=== PATIENT | female | born 1970 | race Caucasian/White ===

== ENCOUNTER 2023-01-30 09:59 | Outpatient (AMB) | payer BC, SELFPAY ==
[2023-01-30 10:02] VITALS: BP 136/70; PULSE 72; O2SAT 97; BMI 30.3
--- NOTE | 2023-01-30 10:02 | MHC.PC.OV ---
Vital Signs 01/30/23 10:02 Height 5 ft 4 in Weight 176 lb 9 oz BMI 30.3 BP 136/70 Blood Pressure Location Lt brachial Position Sitting Pulse 72 Pulse Source Pulse Oximeter Pulse Oximetry (%) 97 Oxygen Delivery Method Room Air Intake Visit Reasons: New patient-High BP Intake Note: Patient is here as a new patient with concern of high blood pressure. She would like to talk about getting Cpap machine, she has her sleep study test results with her today. Allergies No Known Allergies Allergy (Verified 01/30/23 10:08) Tobacco use date assessed: 01/30/23 Dental Screening Dental Screen Date: 01/30/23 Did you have a dental visit in the last 12 months?: Yes Did you have a dental problem in the last 6 months where you did not have access to dental care?: No Was dental information given to patient?: Patient has dentist HPI New patient-High BP HPI Details New patient Prior PCP:?Dr. Oro Last office visit/CPE: 2020 Acute issue(s): PMHx: Hypertension, Sleep Apnea, Asthma, GERD, Uterine Cancer, Hypertriglyceridemia, ITP, Kidney Stone SurgHx: Total abd. hysterectomy, Tonsils. FHx: Brother: DM1, Liver disease, kidney dz. Mom: CAD, [place]. Dad: Aortic An, Stroke, Esoph CA. mGF: Colon CA. SocHx: Nonsmoker. EtOH Occasional 1 No drugs. PFS Medical History (Updated 01/30/23 @ 11:27 by Ayaan Pierre) History of ITP Acid reflux Uterine cancer Asthma High blood pressure Sleep apnea Surgical History (Updated 01/30/23 @ 10:18 by Maribel Bethea CMA) H/O: hysterectomy History of tonsillectomy Family History (Updated 01/30/23 @ 10:23 by Maribel Bethea CMA) Mother High blood pressure High cholesterol Uterine cancer Father High blood pressure High cholesterol Stroke (cerebrum) Aortic aneurysm Cancer of esophagus Brother Diabetes 1.5, managed as type 1 Liver failure Kidney failure Heart failure Ketoacidosis Social History Housing: House Patient Tobacco Use Status: Never used Tobacco e-Cigarette/Vaping Use: Never Used service: No Current occupational status: employed 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 1. Little interest or pleasure in doing things: not at all 2. Feeling down, depressed, or hopeless: not at all 3. Trouble falling or staying asleep, or sleeping too much: nearly every day 4. Feeling tired or having little energy: nearly every day 5. Poor appetite or overeating: not at all 6. Feeling bad about yourself - or that you are a failure or have let yourself or your family down: not at all 7. Trouble concentrating on things, such as reading the newspaper or watching television: not at all 8. Moving or speaking so slowly that other people could have noticed. Or the opposite - being so fidgety or restless that you have been moving around a lot more than usual: not at all 9. Thoughts that you would be better off or of hurting yourself in some way: not at all Total score: 6 Source: Developed by Drs. Munir Holley, Nicky Guthrie, Emanuel Hammond and colleagues, with an educational joel from [employer]. Thrive Questionnaire Date Thrive assessed: 01/30/23 I am a: Patient What is your living situation today?: I have a steady place to live Within the past 12 months, did the food you bought not last and you didn't have the money to get more?: Never true Within the past 12 months, did you worry whether your food would run out before you got money to buy more?: Never true Do you have trouble paying for medicines?: No Do you have trouble getting transportation to medical appointments?: No Do you have trouble paying your heating and electricity bill?: No Do you have trouble taking care of your child, family member or friend?: No Do you have trouble with day-to-day activities such as bathing, preparing meals, shopping, managing finances, etc.?: No Are you currently unemployed and looking for a job?: No Are you interested in more education?: No AUDIT C Alcohol Use Questionnaire (AUDIT-C) 1. How often do you have a drink containing alcohol?: 2-3 times a week 2. How many drinks containing alcohol do you have on a typical day when you are drinking?: 1 or 2 3. How often do you have six or more drinks on one occasion?: Never Total Score: 3 AUGUSTINE-7 AMB Questionnaire AUGUSTINE-7 Date AUGUSTINE - 7 assessed: 01/30/23 Feeling nervous, anxious, or on edge: 0 = Not at all Not being able to stop or control worryin = Not at all Worrying too much about different things: 0 = Not at all Trouble relaxin = Not at all Being so restless that it is hard to sit still: 1 = Several days Becoming easily annoyed or irritable: 0 = Not at all Feeling afraid as if something awful might happen: 0 = Not at all Total AUGUSTINE-7 score (0-4 normal; 5-9 mild; 10-14 moderate; 15-21 severe): 1 Source: Developed by Drs. Munir Holley, Nicky Guthrie, Emanuel Hammond and colleagues, with an educational joel from [employer]. ACT Questionnaire In the past 4 weeks, how much of the time did your asthma keep you from getting as much done at work, school or at home?: None of the time During the past 4 weeks, how often have you had shortness of breath?: 1-2 times a week During the past 4 weeks, how often did your asthma symptoms wake you up at night or earlier than usual in the morning?: Not at all During the past 4 weeks, how often have you had to use your rescue inhaler or nebulizer medication?: Once a week or less How would you rate your asthma control during the past 4 weeks?: Well controlled Score: 22 Review of Systems Const Denies chills, Denies fatigue, Denies fever(s), Denies headache(s) and Denies weakness ENT Denies dizziness and Denies headache(s) Card Denies chest pain, Denies lightheadedness, Denies dyspnea and Denies other (Palpitations) Resp Denies cough, Denies dyspnea, Denies wheezing and Denies other ( shortness of breath) Musc Denies numbness and Denies tingling Neuro Denies dizziness, Denies headache(s), Denies numbness, Denies tingling, Denies paresthesias and Denies weakness Psych Denies anxiety and Denies depression Endo Denies fatigue Aller/Immun Denies wheezing Physical exam (Primary Care) Vital Signs: Last Vital Signs Pulse 72 01/30/23 10:02 BP 136/70 01/30/23 10:02 Pulse Ox 97 01/30/23 10:02 Oxygen Delivery Method Room Air 01/30/23 10:02 BMI result Body Mass Index 30.3 Tobacco/Smoking Status: Tobacco use Status Tobacco use date assessed 01/30/23 01/30/23 10:24 Patient Tobacco Use Status Never used Tobacco 01/30/23 10:24 e-Cigarette/Vaping Use Never Used 01/30/23 10:24 PHQ-9: PHQ-9 Score PHQ-9: Total score 6 01/30/23 11:14 Thrive Assessment: Date of Thrive Assessment Date Thrive assessed 01/30/23 01/30/23 10:40 Const General: no acute distress and well developed Nutritional Appearance: well nourished Orientation/consciousness: patient oriented x3 HENMT Head: Yes normocephalic and Yes atraumatic Eyes General: appearance normal, both eyes and all related structures Pupils: Equal, round and reactive pupils present EOM: EOMs intact bilaterally Resp Effort & Inspection: normal respiratory effort Auscultation: clear to auscultation bilaterally Cardio Rate: regular rate Rhythm: regular rhythm Heart sounds: S1 normal heart sound present, S2 normal heart sound present, no gallops, Murmur heart sound present (4/6 systolic murmur over the aortic region) and no rubs Neuro General: patient oriented x3 and gait normal Cranial nerves: Yes Equal, round and reactive pupils present Psych Affect: normal affect Assessment and Plan Assessment & Plan (1) Hypertension: Code(s): I10 - Essential (primary) hypertension Plan: Blood?pressure?is?controlled.??Goal?is?less?than?140/90 May?improve?with?treatment?of?sleep?apnea For?now,?continue?current?medication?regimen Will?follow-up (2) Sleep apnea: Code(s): G47.30 - Sleep apnea, unspecified Plan: Sleep?study?showed?59?hypopnea?events?and?oxygen?saturation?as?low?as?81%. Referred?to?Sleep?Medicine (3) Hypertriglyceridemia: Code(s): E78.1 - Pure hyperglyceridemia Plan: Encouraged?diet?lower?in?saturated?fats?and?cholesterol?but?also?sugars?and?starches Work?on?a?diet?of?lean?meats?and?leafy?green?vegetables Will?repeat?triglycerides.??If?higher,?will?discuss?using?a?fibrate?medication (4) History of ITP: Code(s): Z86.2 - Personal history of diseases of the blood and blood-forming organs and certain disorders involving the immune mechanism Plan: Check?CBC (5) Heart murmur: Code(s): R01.1 - Cardiac murmur, unspecified Plan: 6?systolic?murmur?at?aortic?region Patient?is?unaware - this?has?never?been?characterized Check?echocardiogram (6) Laboratory exam ordered as part of routine general medical examination: Code(s): Z00.00 - Encounter for general adult medical examination without abnormal findings Plan: Check?lab Orders: Orders Lipid Panel Today Z00.00 - Encounter for general adult medical examination without abnormal findings Microalbumin, Random (w Creat) Today I10 - Essential (primary) hypertension UA and rflx microscopic Today Z00.00 - Encounter for general adult medical examination without abnormal findings Complete Blood Count Auto Diff Today Z00.00 - Encounter for general adult medical examination without abnormal findings Comprehensive [place]. Panel Fast Today Z00.00 - Encounter for general adult medical examination without abnormal findings TSH reflex Free T4 Today Z00.00 - Encounter for general adult medical examination without abnormal findings CA echo transthoracic complete Today R01.1 - Cardiac murmur, unspecified Referrals Sleep Medicine Referral G47.30 - Sleep apnea, unspecified Medications: New hydrochlorothiazide 25 mg PO DAILY 90 tabs 3RF 90 days amlodipine 10 mg PO DAILY 90 tabs 3RF 90 days fluticasone propionate 110 mcg/actuation (Flovent HFA) 2 puffs inhalation BID 12 grams 3RF 30 days albuterol sulfate 90 mcg/actuation (ProAir HFA) 2 puffs inhalation Q4-6H PRN 8.5 grams 0RF shortness of breath or wheezing 30 days Coding Level of Care Code New Pt Level 3 (03876) Diagnoses Hypertension I10 Sleep apnea G47.30 Hypertriglyceridemia E78.1 History of ITP Z86.2 Heart murmur R01.1 Laboratory exam ordered as part of routine general medical examination Z00.00
== END 2023-01-30 11:37 | disposition home or self-care (01) ==
PROVIDERS: PCP Family Medicine; Visit Provider Family Medicine
DX: I10 Essential (primary) hypertension (principal); G47.30 Sleep apnea, unspecified; E78.1 Pure hyperglyceridemia; Z86.2 Personal history of diseases of the blood and blood-forming organs and certain disorders involving the immune mechanism; R01.1 Cardiac murmur, unspecified; Z00.00 Encounter for general adult medical examination without abnormal findings
CPT/HCPCS: 99203

== ENCOUNTER → 2023-02-26 14:49 | Outpatient (REF) | payer BC, SELFPAY ==
--- NOTE | 2023-02-26 14:53 | CA_ITS ---
Transthoracic Echocardiogram Patient (Last, First, Middle): Noni Jama A Gender: Female Date of : 1970 Age: 53 Procedure Date: 02/26/2023 Procedure Type: Transthoracic Echocardiogram Location: OP Height: 162.56 cm Weight: 86.18 kg BSA: 1.91 m2 Heart Rate: bpm BP: 138 / 80 mmHg Outdoor Adventure Instructor: DELVIN Referring MD: Sampson Guerra MD Stock Parts Fabricator: Marcial Emmanuel MD Symptoms: R01.1 - Cardiac murmur, unspecified Study Quality: Adequate with contrast ECG Rhythm: Sinus Conclusions: - 1. Hyperdynamic LV ejection fraction with LVEF of greater than 70% with mild asymmetric septal hypertrophy without significant gradient across the LVOT with impaired relaxation filling pattern 2. Mild aortic regurgitation 3. Mildly dilated ascending aorta 3.7 cm 4. Normal RV systolic pressure 5. No pericardial effusion Findings Procedure Information Contrast agent, definity, is being given per protocol without apparent complications. Left Ventricle Normal left ventricular cavity size. There is normal left ventricular wall thickness. The left ventricular systolic function is hyperdynamic. The visually estimated ejection fraction is >70%. Spectral Doppler is indicative of an impaired relaxation filling pattern. E/E prime ratio is between 8 and 15 consistent with indeterminate filling pressures. There is mild septal asymmetric hypertrophy. Right Ventricle Normal right ventricular cavity size and systolic function. Atria The left atrium is likely dilated. Interatrial shunt cannot be excluded. The right atrium is normal in size. Aortic Valve The aortic valve structure and function is likely normal. There is no aortic valve stenosis. There is mild aortic valve regurgitation. Mitral Valve There is mild anterior and posterior mitral leaflet thickening. There is trace mitral valve regurgitation. There is no mitral valve stenosis. Pulmonic Valve The pulmonic valve is likely normal. There is trace pulmonic valve regurgitation. Tricuspid Valve Likely normal tricuspid valve structure and function. There is trace tricuspid valve regurgitation. The right ventricular systolic pressure is normal. The right ventricular systolic pressure is 25 mmHg. Normal right atrial pressure. Great Vessels The pulmonary artery was not well visualized. There is mild dilatation of the ascending aorta measuring 3.70 cm. Venous The inferior vena cava is normal in size and collapses greater than 50% with inspiration. Pericardium/Pleural There is no evidence of pericardial effusion. Prior Study Comparison No prior study available for comparison. Measurements 2D Linear Measurements IVSd: 1.39 0.6-0.9/0.6-1.0 cm LVIDd: 5.01 3.9-5.3/4.2-5.9 cm LVIDd Index: 2.62 2.4-3.2/2.2-3.1 cm/m2 LVIDs: 3.36 2.0-3.6 cm LVPWd: 0.95 0.7-1.1 cm LA Diam: 4.10 2.7-3.8/3.0-4.0 cm LAIDs Index: 2.15 1.5-2.3 cm/m2 LV Mass: 282.50 67-162/88-224 g LV Mass Index: 147.91 43-95/49-115 g/m2 LVOT Diam: 2.00 3.0+(-)1.3 cm 2D Systolic Function EF 4C: 76.00 >55% EF 2C: 74.70 >55% EF BiP: 75.90 >55% Mitral Valve MV Pk E: 0.78 MV PK A: 0.75 MV Decel Time: 222.00 E/A: 1.00 E'Lateral: 6.64 E'Medial: 5.55 E/E' Med: 14.00 E/E' Lat: 11.70 PHT: 65.00 MVA PHT: 3.38 Decel [place]: 3.49 Aortic Valve AoV Pk Omer: 1.90 AoV Mn Omer: 1.28 AoV VTI: 0.43 AoV Pk Grad: 14.00 Aov Mn Grad: 8.00 NAJMA Cont.VTI: 2.70 LVOT LVOT Pk Omer: 1.58 LVOT Mn Omer: 1.12 LVOT VTI: 0.37 LVOT Pk Grad: 10.00 LVOT Mn Grad: 6.00 LVOT Diam: 2.00 LVOT Area: 3.14 Diastolic Function MV Pk E: 0.78 MV Pk A: 0.75 E/A: 1.00 E'Medial: 5.55 E/E' Med: 14.00 E' Laterial: 6.64 E/E' Lat: 11.70 Right Ventricle TAPSE (mm): 24.80 TVS' Omer: 16.50 Tricuspid Valve TR Pk Omer: 2.32 TR Pk Grad: 22.00 RA Press: 3.00 RVSP: 25.00 Great Vessels Aorta Sinus of Valsalva: 3.62 2.0-3.[address] [place]: 2.79 1.7-3.4 cm Ao Asc: 3.70 2.1-3.4 cm Updated in Other Vendor System with Status of Final Marcial Emmanuel MD electronically signed on 02/27/2023 3:27:51 PM with status of Final
== END ==
LOC: HO.CARD 14:49
PROVIDERS: PCP Family Medicine; Visit Provider Family Medicine
DX: R01.1 Cardiac murmur, unspecified (principal)
CPT/HCPCS: 93306; Q9957

== ENCOUNTER → 2023-02-26 14:53 | Outpatient (BNV) | payer BC, SELFPAY | PROVIDERS: PCP Family Medicine; Visit Provider Internal Medicine Cardiovascular Disease | DX: I35.1 Nonrheumatic aortic (valve) insufficiency (principal) | CPT/HCPCS: 93306 ==

== ENCOUNTER 2023-04-11 14:59 | Outpatient (AMB) | payer BC, SELFPAY ==
--- NOTE | 2023-04-11 15:01 | A.OFFVIS_ITS ---
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 Pt reports she had a home sleep study in June. The home sleep study result was mild degree of sleep apnea. The AHT @ 3% 7.6/hr, and 4% at 5.3/hr, oxygen lilly was 81%. However, she has not received CPAP. Pt had sleep study through [facility]. She tries to sleep on her side, and elevated her head. However, she still wakes up gasping and dry mouth. She works at home, recently started taking a nap due to daytime sleepiness. She gained about 20 lb over the last couple of years and noticed that she snores more and having non refreshing sleep. Sleep questionnaire: Have you ever been diagnosed with a sleep disorder? VI. Have you ever had a sleep study in the past? Yes home sleep study. Have you ever been treated for a sleep disorder? No. Do you take medications for a sleep disorder? Benadryl occasionally. Do you snore? Yes. Do you wake up gasping at night? Yes. Do you have episodes of apneas? Yes. If yes, are they witnessed? Yes. Do you have episodes of nocturnal chest pain or dyspnea? Yes. Do you have difficulty initiating sleep? Yes. Do you have difficulty maintaining sleep? Yes. Do you wake up tired? Yes. Do you have headaches upon awakening? Yes. Do you wake up with dry mouth or throat? Yes. Do you have GERD? Yes. Do you have nocturia? No. Do you have nocturnal leg cramps? No. Do you have symptoms of restless legs? Yes. Do you act out your dreams? No. Sleep hygiene questionnaire: What is your usual sleep routine? Usual bedtime is at 9 pm; Usual wake up time is at 5 am. Do you take naps? Yes, about a hour during her lunch break. Is your sleep environment cool, dark, and quiet? Yes. Do you exercise? Three times a week, 2 miles walking. Do you take caffeine or other stimulants? 2 cups of coffee in the morning and after nap. Do you use electronics in bed? No. What is your work schedule? 8 am to 5 pm. Hypersomnolence questionnaire: Do you have daytime tiredness or fatigue? Yes. Do you easily fall asleep when inactive? Yes. Have you ever had episodes of sudden weakness? No. 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 Cognitive needs: No Hearing needs: No Vision needs: Yes (patient wears prescription glasses) Review of Systems Const All systems reviewed & are unremarkable except as noted in HPI and below Physical Exam Vital Signs: Last Vital Signs Pulse 94 04/11/23 15:04 BP 142/110 H 04/11/23 15:04 Pulse Ox 98 04/11/23 15:04 Oxygen Delivery Method Room Air 04/11/23 15:04 BMI result Body Mass Index 33.6 Const General: cooperative Nutritional Appearance: obese Orientation/consciousness: patient oriented x3 Neck Neck: Yes full ROM and Yes supple Resp Effort & Inspection: normal respiratory effort and able to speak in complete sentences Neuro General: patient oriented x3, gait normal and moves all extremities Cranial nerves: Yes CN's II-XII intact bilaterally Cognition (Neuro): normal cognition Gait exam (Neuro): Normal gait present Motor exam (neuro): 5/5 motor strength present throughout Psych Appearance: grossly normal Mental Status: mental status grossly normal Speech and movement: Normal speech and movement present Affect: normal affect Attitude: cooperative Assessment & Plan Assessment & Plan (1) Sleep apnea: Comment: Mild degree of sleep apnea. Code(s): G47.30 - Sleep apnea, unspecified Plan Advised patient to start APAP [id number]. Stressed compliance, use CPAP nightly and more than 4 hrs. Wt reduction advised. Coding Level of Care Code New Pt Level 3 (87822) Diagnoses Sleep apnea G47.30
[2023-04-11 15:04] VITALS: BP 142/110; PULSE 94; O2SAT 98; BMI 33.6
== END 2023-04-11 15:32 | disposition home or self-care (01) ==
PROVIDERS: Visit Provider Nurse Practitioner Family
DX: G47.30 Sleep apnea, unspecified (principal)
CPT/HCPCS: 99203

== ENCOUNTER → 2023-04-11 14:59 | Outpatient (BNVA) | payer BC, SELFPAY | PROVIDERS: Visit Provider Nurse Practitioner Family ==

== ENCOUNTER 2023-04-16 08:01 | Outpatient (REF) | payer BC, SELFPAY ==
[2023-04-16 11:22] LABS: MANUAL DIFF FLAG NO
[2023-04-16 11:31] LABS: Appearance Urine Cloudy; Color Urine Dark Yellow; Glucose Urine UA Negative (Negative); Leukocyte Esterase Urine Moderate (2+) (Negative); Nitrite Urine Negative (Negative); Specific Gravity - Urine 1.025 (1.005-1.025); UMIC TRIGGER UA YES; Urine Blood Moderate (2+) (Negative); Urine Ketones Trace mg/dL (Negative); Urine Protein 30 (1+) mg/dL (Neg-Trace)
[2023-04-16 11:32] LABS: Basophils Absolute Auto 0.1 X10*3/uL (0.0-0.2); Basophils Percent Auto 1.1 % (0-2); Eosinophils Absolute Auto 0.1 X10*3/uL (0.0-0.4); Eosinophils Percent Auto 2.3 % (0-4); Hematocrit 40.2 % (37.0-47.0); Hemoglobin 13.6 g/dl (12.0-16.0); Imm Gran Abs Auto 0.02 X10*3/uL (0.00-0.03); Imm Gran Pct Auto 0.4 % (0.0-0.4); Lymphocytes Absolute Auto 1.7 X10*3/uL (1.2-4.9); Lymphocytes Percent Auto 29.5 % (20-40); Mean Corpuscular HGB Conc 33.8 g/dl (31.0-35.0); Mean Corpuscular Hemoglobin 27.6 pg (27.0-33.0); Mean Corpuscular Volume 81.5 fL (80.0-98.0); Mean Platelet Volume 9.4 fL (9.4-12.3); Monocytes Absolute Auto 0.4 X10*3/uL (0.1-1.2); Monocytes Percent Auto 6.2 % (2-11); Neutrophils Absolute Auto 3.5 x10*3/uL (2.0-8.3); Neutrophils Percent Auto 60.5 % (45-73); Platelet Count 219 X10*3/uL (160-400); Red Blood Count 4.93 X10*6/uL (4.20-5.50); Red Cell Distribution Width 14.1 % (11.0-16.0); White Blood Count 5.7 X10*3/uL (4.8-10.8)
[2023-04-16 11:36] LABS: Bacteria Urine None Seen (None Seen); Squamous Epithelial Cell Urine 0-2 /HPF (0-2); WBC Urine >50 /HPF (0-5)
[2023-04-16 11:52] LABS: Microalbum/Creatinine Ratio Ur 29.9 ug/mg cr (<30)
[2023-04-16 12:04] LABS: Alanine Aminotransferase 25 U/L (0-31); Albumin Level 4.4 g/dL (3.5-5.0); Alkaline Phosphatase 52 U/L (39-117); Anion Gap 13 (12-20); Aspartate Amino Transferase 21 U/L (5-31); Bilirubin Total 0.4 mg/dL (0.0-1.0); Blood Urea Nitrogen 13 mg/dL (9-16); Calcium 9.6 mg/dL (8.4-10.2); Carbon Dioxide 25 mmol/L (22-29); Chloride 110 mmol/L (96-108); Cholesterol 193 mg/dL (<200); Estimated Glomerular Filt Rate > 60; Glucose Fasting 105 mg/dL (60-99); HDL Cholesterol 43 mg/dL (>40); LDL Cholesterol Calculated 124 mg/dL (<100); Potassium 3.5 mmol/L (3.3-5.1); Sodium 144 mmol/L (135-145); Total Protein 7.1 g/dL (6.5-8.0); Triglycerides 134 mg/dL (<150)
[2023-04-16 12:18] LABS: TSH reflex Free T4 2.34 uIU/mL (0.32-4.0)
== END 2023-04-16 08:02 | disposition home or self-care (01) ==
LOC: HO.WFDLDS 08:01
PROVIDERS: Visit Provider Family Medicine
DX: Z00.00 Encounter for general adult medical examination without abnormal findings (principal); I10 Essential (primary) hypertension
CPT/HCPCS: 36415; 80053; 80061; 81001; 82043; 82570; 84443; 85025

== ENCOUNTER 2023-04-24 13:53 | Outpatient (AMB) | payer BC, SELFPAY ==
[2023-04-24 14:04] VITALS: BP 136/78; PULSE 77; O2SAT 97; BMI 33.5
--- NOTE | 2023-04-24 14:04 | MHC.PC.OV ---
Vital Signs 04/24/23 14:04 Height 5 ft 4 in Weight 195 lb BMI 33.5 BP 136/78 Blood Pressure Location Rt brachial Position Sitting Pulse 77 Pulse Source Pulse Oximeter Pulse Oximetry (%) 97 Oxygen Delivery Method Room Air Intake Visit Reasons: CPE with f/u labs and health maint. Intake Note: Patient is here for physical and follow up on labs. Patient would like refill on her Atorvastatin. Allergies No Known Allergies Allergy (Verified 04/24/23 14:07) Tobacco use date assessed: 01/30/23 HPI CPE with f/u labs and health maint. HPI Details 53 y/o female presents for a CPE with f/u labs and health maintenance. Labs were drawn 04/16/23. Reviewed labs with pt. Elevated fasting glucose of 105. A1c today 04/24/23 is 5.8%. Triglycerides 134. TC 193. LDL 124. HDL 43. Blood pressure today 136/78. She is on amlodipine 10mg and hydrochlorothiazide 25 mg daily. Pt reports last colonoscopy was at [facility] 2021, 10 year f/u. [facility] Medical History History of ITP Acid reflux Uterine cancer Asthma High blood pressure Sleep apnea Surgical History H/O: hysterectomy History of tonsillectomy Family History Mother High blood pressure High cholesterol Uterine cancer Father High blood pressure High cholesterol Stroke (cerebrum) Aortic aneurysm Cancer of esophagus Brother Diabetes 1.5, managed as type 1 Liver failure Kidney failure Heart failure Ketoacidosis Social History Housing: House Patient Tobacco Use Status: Never used Tobacco e-Cigarette/Vaping Use: Never Used service: No Current occupational status: employed 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 Munir Holley, Nicky B.W. Emanuel Guthrie and colleagues, with an educational joel from [employer]. Review of Systems Const Denies chills, Denies fatigue, Denies fever(s), Denies headache(s) and Denies weakness Eyes Denies change in vision ENT Denies dizziness, Denies headache(s), Denies hearing loss, Denies nasal congestion, Denies sinus pain, Denies sinus pressure and Denies sore throat Card Denies chest pain, Denies lightheadedness, Denies dyspnea and Denies other (palpitations) Resp Denies cough, Denies dyspnea and Denies wheezing GI Denies abdominal pain, Denies melena, Denies hematochezia, Denies change in bowel habits, Denies dyspepsia and Denies nausea Denies hematuria and Denies dysuria Musc Denies abnormal gait, Denies myalgias, Denies arthralgias, Denies numbness and Denies tingling Skin/Breast Denies rash, Denies unusual bruising and Denies wounds Neuro Denies abnormal gait, Denies dizziness, Denies headache(s), Denies memory loss, Denies numbness, Denies Sensory deficit (Neuro), Denies tingling and Denies weakness Psych Denies anxiety, Denies depression and Denies memory loss Endo Denies cold intolerance, Denies fatigue, Denies heat intolerance, Denies polydipsia and Denies polyuria Joseph/Lymph Denies easy bleeding and Denies easy bruising Aller/Immun Denies wheezing Physical exam (Primary Care) Vital Signs: Last Vital Signs Pulse 77 04/24/23 14:04 BP 136/78 04/24/23 14:04 Pulse Ox 97 04/24/23 14:04 Oxygen Delivery Method Room Air 04/24/23 14:04 BMI result Body Mass Index 33.5 Tobacco/Smoking Status: Tobacco use Status Tobacco use date assessed 01/30/23 04/24/23 14:07 Patient Tobacco Use Status Never used Tobacco 04/24/23 14:07 e-Cigarette/Vaping Use Never Used 04/24/23 14:07 Thrive Assessment: Date of Thrive Assessment Date Thrive assessed 01/30/23 04/24/23 14:07 Const General: no acute distress, well developed, alert and awake Nutritional Appearance: well nourished Orientation/consciousness: patient oriented x3 HENMT Head: Yes normocephalic and Yes atraumatic Ears: hearing grossly normal bilaterally and TM's normal bilaterally General nose exam: Normal external nose present and Normal nares present Mouth: Normal oral and palatal mucosa present and moist mucous membranes Teeth and gingiva: dentition normal Throat: Yes posterior oropharynx normal Eyes General: appearance normal, both eyes and all related structures Pupils: Equal, round and reactive pupils present and Pupil accommodation reflex normal EOM: EOMs intact bilaterally Neck Neck: Yes normal visual inspection, Yes no lymphadenopathy and Yes trachea midline Thyroid: Thyroid normal Carotids: no bruits Lymphatic: no lymphadenopathy noted Chest Chest palpation & inspection: normal inspection of the chest Resp Effort & Inspection: normal respiratory effort Auscultation: clear to auscultation bilaterally Cardio Rate: regular rate Rhythm: regular rhythm Heart sounds: S1 normal heart sound present, S2 normal heart sound present, no gallops, no murmurs and no rubs Bruits: no abdominal aortic bruits and no carotid bruits GI Palpation (GI): No Abdominal aortic bruit present, Soft to palpation, nontender, No hepatosplenomegaly present and No Rebound tenderness present Auscultation: normal bowel sounds General: Yes no CVA tenderness Back/Spine/Pelvis Back: no CVA tenderness Cervical Spine: cervical ROM normal and No Cervical spine tenderness Thoracic/Lumbar Spine: thoraco-lumbar ROM normal, No pain with thoraco-lumbar ROM, No thoracic spinal tenderness and No lumbar spinal tenderness Skin Lesions: no lesions Rashes: no rashes Trauma: no lacerations or abrasions Wounds: no wounds Nails: normal Neuro General: patient oriented x3 Cranial nerves: Yes Equal, round and reactive pupils present Cognition (Neuro): normal cognition Gait exam (Neuro): Normal gait present Motor exam (neuro): 5/5 motor strength present throughout Sensory Exam: No Sensory deficit (Neuro) Deep tendon reflexes (DTR's): Right patellar reflex intensity grade: 2+ and Left patellar reflex intensity grade: 2+ Extrem General: Yes normal to inspection and No edema Psych Appearance: grossly normal Affect: normal affect Attitude: cooperative Thought process: Normal thought process present Results AMB Hemoglobin A1c AMB Hemoglobin A1c 5.8 % Last Edit by Kamla Butler CMA on 04/24/23 14:40 JT PERFORMED A1C KIR DOCUMENTED Assessment and Plan Assessment & Plan (1) Adult general medical exam: Code(s): Z00.00 - Encounter for general adult medical examination without abnormal findings (2) Heart murmur: Code(s): R01.1 - Cardiac murmur, unspecified Plan: Echocardiogram?showed: Hyperdynamic LV ejection fraction with LVEF of greater than 70% with mild asymmetric septal hypertrophy without significant gradient across the LVOT with impaired relaxation filling pattern 2. Mild aortic regurgitation 3. Mildly dilated ascending aorta 3.7 cm (3) Pre-diabetes: Code(s): R73.03 - Prediabetes Plan: A1c?5.8%. Pre?diabetes Encouraged?a?diet?lower?in?sugars?and?starches,?regular?exercise?and?weight?control. (4) Hypertension: Code(s): I10 - Essential (primary) hypertension Plan: Blood?pressure?is?controlled.??Goal?is?less?than?140/90 Continue?current?medication (5) Breast cancer screening by mammogram: Code(s): Z12.31 - Encounter for screening mammogram for malignant neoplasm of breast Plan: Mammogram?in?January. She?was?told?to?continue?annual?screening Next?mammogram?January?2023 (6) Screening for colon cancer: Code(s): Z12.11 - Encounter for screening for malignant neoplasm of colon Plan: Colonoscopy?at?[facility]?in?2021. Normal Recommended?follow-up?in?10?years (7) Screening for cervical cancer: Code(s): Z12.4 - Encounter for screening for malignant neoplasm of cervix Plan: Followed?at?[facility]?year?ago.??Normal Follow-up?with?her?architectural engineer?as?recommended Plan Mamogram Feb 11. Orders: Orders AMB Hemoglobin A1c Today R73.01 - Impaired fasting glucose Referrals Cardiology Referral I35.1 - Nonrheumatic aortic (valve) insufficiency, I51.7 - Cardiomegaly, R01.1 - Cardiac murmur, unspecified Coding Level of Care Code Est Pt Level 3 (50206) Est Pt Prev Care 40-64y(74794) Diagnoses Adult general medical exam Z00.00 Heart murmur R01.1 Pre-diabetes R73.03 Hypertension I10 Breast cancer screening by mammogram Z12.31 Screening for colon cancer Z12.11 Screening for cervical cancer Z12.4
== END 2023-04-24 14:50 | disposition home or self-care (01) ==
PROVIDERS: Visit Provider Family Medicine
DX: Z00.00 Encounter for general adult medical examination without abnormal findings (principal); R01.1 Cardiac murmur, unspecified; R73.03 Prediabetes; I10 Essential (primary) hypertension; R73.01 Impaired fasting glucose; Z12.11 Encounter for screening for malignant neoplasm of colon; Z12.4 Encounter for screening for malignant neoplasm of cervix; Z12.31 Encounter for screening mammogram for malignant neoplasm of breast
CPT/HCPCS: 83036; 99213; 99396

== ENCOUNTER 2023-08-08 08:47 | Outpatient (AMB) | payer BC, SELFPAY ==
[2023-08-08 08:50] VITALS: BP 140/92; PULSE 80; BMI 33.9
--- NOTE | 2023-08-08 08:50 | A.OFFVIS_ITS ---
Vital Signs 08/08/23 08:50 Height 5 ft 4 in Weight 197 lb 8.547 oz BMI 33.9 BP 140/92 H Blood Pressure Location Lt brachial Position Sitting Pulse 80 Pulse Source Monitor Intake Visit Reasons: ROD BUSTER/Mari/Cardiac murmur, [employer] Technology [employer] Required: No Allergies No Known Allergies Allergy (Verified 08/08/23 08:52) Medication List - Last Reconciled 08/08/23 by Marcial Emmanuel MD albuterol sulfate 90 mcg/actuation (ProAir HFA) 2 puffs inhalation Q4-6H PRN 30 days amlodipine 10 mg PO DAILY 90 days atorvastatin 10 mg PO DAILY fluticasone propionate 110 mcg/actuation (Flovent HFA) 2 puffs inhalation BID 30 days hydrochlorothiazide 25 mg PO DAILY 90 days HPI Comments Details: Thank you for referring Noni in cardiology consultation today for noted murmur and family history of cardiovascular disease. Patient says she was detected having a murmur recently underwent echocardiogram which shows hyperdynamic LV ejection fraction greater than 70% without any LVOT obstruction with mildly dilated ascending aorta with mild aortic regurgitation. She is family history of father having ascending aortic aneurysm and dying from surgical complication age 60. Mother had a myocardial infarction late 70s. Her older brother has congestive heart failure. She is concerned about overall her heart condition. She has longstanding history of hypertension with mostly a systolic blood pressure still ranging in the 130-140 range. She was recently diagnosed with sleep apnea is currently using CPAP regularly and feels better. She complains of having symptoms of exertional shortness of breath and fatigue and thinks that this might be related to asthma however she has not 100% clear. She has prediabetes and hyperlipidemia and has been on longstanding low-dose statin. Her last LDL was 123 mg/dL. She denies any orthopnea, PND, leg edema. Denies any prolonged palpitations or lightheadedness or syncope. Denies any exertional chest pain. [facility] Medical History History of ITP Acid reflux Uterine cancer Asthma High blood pressure Sleep apnea Surgical History H/O: hysterectomy History of tonsillectomy Family History Mother High blood pressure High cholesterol Uterine cancer Father High blood pressure High cholesterol Stroke (cerebrum) Aortic aneurysm Cancer of esophagus Brother Diabetes 1.5, managed as type 1 Liver failure Kidney failure Heart failure Ketoacidosis Social History Housing: House Patient Tobacco Use Status: Never used Tobacco e-Cigarette/Vaping Use: Never Used service: No Current occupational status: employed 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 Cognitive needs: No Hearing needs: No Vision needs: Yes (patient wears prescription glasses) Review of Systems ENT Reports dizziness Card Denies chest pain, Denies chest pain at rest, Denies chest pain with activity, Denies rapid heart rate, Denies pedal edema, Denies edema, Denies leg edema, Denies lightheadedness, Denies palpitations, Denies dyspnea, Denies dyspnea on exertion and Denies orthopnea Resp Denies cough, Denies dyspnea and Denies dyspnea on exertion GI Denies hematochezia and Denies change in stool character Musc Denies abnormal gait, Reports limited range of motion, Reports muscle cramps, Denies muscle weakness, Denies numbness, Denies radiating pain into limb, Denies stiffness and Denies tingling Neuro Denies abnormal gait, Reports dizziness, Denies numbness and Denies tingling Endo Denies palpitations Physical Exam Vital Signs: Last Vital Signs Pulse 80 08/08/23 08:50 BP 140/92 H 08/08/23 08:50 BMI result Body Mass Index 33.9 Const General: cooperative, comfortable, no acute distress, alert, awake, Physically active and well groomed Nutritional Appearance: obese Orientation/consciousness: patient oriented x3 Limitations: no limitations HEENT Head: Yes normocephalic and Yes atraumatic Neck Neck: Yes trachea midline, Yes supple and Yes no JVD Resp Effort & Inspection: normal respiratory effort Auscultation: clear to auscultation bilaterally Cardio Jugular venous distension: no JVD Palpation: normal PMI Rate: regular rate Rhythm: regular rhythm Heart sounds: S1 normal heart sound present, S2 normal heart sound present, no click, no gallops and Murmur heart sound present systolic early Peripheral pulses: Peripheral pulses 2+ throughout GI Auscultation: normal bowel sounds Skin General skin exam: no rashes or lesions noted Neuro General: patient oriented x3 and no focal motor deficits Extrem General: Yes no clubbing, cyanosis or edema Psych Appearance: grossly normal Office Procedures EKG Details: EKG shows normal sinus rhythm with diffuse ST T wave changes mostly in inferolateral leads suggestive either repolarization abnormality or ischemia. [id number], Complete Assessment & Plan Assessment & Plan (1) Abnormal EKG: Code(s): R94.31 - Abnormal electrocardiogram [ECG] [EKG] Category: Medical Plan: Patient's presents here with symptoms of exertional fatigue and shortness of breath with significant family history as well as multiple risk factors for obstructive coronary artery disease. Her EKG at baseline is abnormal suggestive of diffuse ST changes in more inferolateral leads. This could represent myocardial ischemia and/or repolarization abnormality. I would suggest her to undergo exercise myocardial perfusion imaging to evaluate for obstructive coronary artery disease. This will be scheduled in near future. If this is negative and shows normal myocardial perfusion would suggest her to for further screening with coronary calcium score. She is agreeable to both. Will schedule these in near future. Further treatment based on the findings. (2) Enlarged thoracic aorta: Code(s): I77.89 - Other specified disorders of arteries and arterioles Category: Medical Plan: Mildly enlarged thoracic aorta for her gender at 3.7 cm. Follow-up echocardiogram in 1 year's time. No interventions required. Pathophysiology of ascending aortic enlargement was discussed. There is no surgical interventions required at this point in time. Continue aggressive blood pressure control. Advised to monitor blood pressure log, see below. Follow-up echocardiogram in 1 year's time. Given her family history of AAA, will schedule abdominal u ltrasound for the same. (3) Hypertension: Code(s): I10 - Essential (primary) hypertension Category: Medical Plan: Hypertension with borderline control. Advised to maintain a log. Bring it to next visit. Continue current therapy for now. Low-salt diet was discussed. If blood pressure remains above 130, further titration in her medications to achieve blood pressure goal less than 130/84 was discussed. Advised to maintain adequate hydration. Continue CPAP therapy. Continue participate in weight loss program. Will follow up in the clinic in 4 weeks time, sooner p.r.n.. Thank you for allowing me to partake in the care
== END 2023-08-08 09:59 | disposition home or self-care (01) ==
PROVIDERS: PCP Family Medicine; Visit Provider Internal Medicine Cardiovascular Disease
DX: R94.31 Abnormal electrocardiogram [ECG] [EKG] (principal); I77.810 Thoracic aortic ectasia; I10 Essential (primary) hypertension
CPT/HCPCS: 93010; 99214

== ENCOUNTER → 2023-08-08 08:47 | Outpatient (BNVA) | payer BC, SELFPAY | PROVIDERS: PCP Family Medicine; Visit Provider Internal Medicine Cardiovascular Disease | DX: R94.31 Abnormal electrocardiogram [ECG] [EKG] (principal); I77.89 Other specified disorders of arteries and arterioles; I10 Essential (primary) hypertension | CPT/HCPCS: 93005 ==

== ENCOUNTER 2023-08-15 13:54 | Outpatient (AMB) | payer BC, SELFPAY ==
--- NOTE | 2023-08-15 14:08 | A.OFFVIS_ITS ---
Vital Signs 08/15/23 14:13 Height 5 ft 4 in Weight 200 lb 2 oz BMI 34.3 BP 130/70 Blood Pressure Location Lt brachial Position Sitting Pulse 67 Pulse Source Pulse Oximeter Pulse Oximetry (%) 97 Oxygen Delivery Method Room Air Intake Visit Reasons: 4 mo f/u VI - LVM w/add Intake Note: Patient presents for 4 months f/u. Allergies No Known Allergies Allergy (Verified 08/15/23 14:12) HPI Comments Details: 53 y/o female patient for follow up of VI on CPAP. Pt has received a CPAP and start using it. The CPAP compliance and therapy response (05/09/23-08/06/23) reviewed. She is on APAP at [id number]. The usage days 56% and the average usage hours 7 hrs 20 min. The max pressure was 14.5 and the AHI was 0.4/hr. Pt reports she sleeps well with CPAP for 7-8 hrs, not waking up in the middle of night. She feels refreshed and not tired during the day. The home sleep study result was mild degree of sleep apnea. The AHI was 7/hr, and oxygen lilly was 81%. [facility] Medical History History of ITP Acid reflux Uterine cancer Asthma High blood pressure Sleep apnea Surgical History H/O: hysterectomy History of tonsillectomy Family History Mother High blood pressure High cholesterol Uterine cancer Father High blood pressure High cholesterol Stroke (cerebrum) Aortic aneurysm Cancer of esophagus Brother Diabetes 1.5, managed as type 1 Liver failure Kidney failure Heart failure Ketoacidosis Social History Housing: House Patient Tobacco Use Status: Never used Tobacco e-Cigarette/Vaping Use: Never Used service: No Current occupational status: employed 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 Cognitive needs: No Hearing needs: No Vision needs: Yes (patient wears prescription glasses) Review of Systems Const All systems reviewed & are unremarkable except as noted in HPI and below Physical Exam Vital Signs: Last Vital Signs Pulse 67 08/15/23 14:13 BP 130/70 08/15/23 14:13 Pulse Ox 97 08/15/23 14:13 Oxygen Delivery Method Room Air 08/15/23 14:13 BMI result Body Mass Index 34.3 Const General: cooperative Nutritional Appearance: obese Orientation/consciousness: patient oriented x3 Neck Neck: Yes full ROM and Yes supple Resp Effort & Inspection: normal respiratory effort and able to speak in complete sentences Neuro General: patient oriented x3, gait normal and moves all extremities Cranial nerves: Yes CN's II-XII intact bilaterally Cognition (Neuro): normal cognition Gait exam (Neuro): Normal gait present Motor exam (neuro): 5/5 motor strength present throughout Psych Appearance: grossly normal Mental Status: mental status grossly normal Speech and movement: Normal speech and movement present Affect: normal affect Attitude: cooperative Assessment & Plan Assessment & Plan (1) Sleep apnea: Comment: Mild degree of sleep apnea. Code(s): G47.30 - Sleep apnea, unspecified Category: Medical Plan Continue to use CPAP at [id number] as patient experiences good clinical effects, sleep quality and daytime sleepiness has improved. Stressed compliance, use CPAP nightly and more than 4 hrs. Wt reduction advised. Coding Level of Care Code Est Pt Level 3 (35795) Diagnoses Sleep apnea G47.30
[2023-08-15 14:13] VITALS: BP 130/70; PULSE 67; O2SAT 97; BMI 34.3
== END 2023-08-15 14:40 | disposition home or self-care (01) ==
PROVIDERS: Visit Provider Nurse Practitioner Family
DX: G47.30 Sleep apnea, unspecified (principal)
CPT/HCPCS: 99213

== ENCOUNTER → 2023-08-15 13:54 | Outpatient (BNVA) | payer BC, SELFPAY | PROVIDERS: Visit Provider Nurse Practitioner Family ==

== ENCOUNTER 2023-08-19 07:51 | Outpatient (REF) | payer BC, SELFPAY ==
--- NOTE | ~2023-08-19 | US_ITS ---
EXAMINATION: US RETROPERITONEAL LIMITED (AORTA) CLINICAL INFORMATION: Family history of ischemic heart disease and other diseases of the circulatory system. COMPARISON: None available. TECHNIQUE: Rodriguez-scale, color Doppler and spectral Doppler evaluation of the abdominal aorta. FINDINGS: Atherosclerosis is present. The measurements of the aorta in maximum AP and transverse dimensions respectively are as follows: Proximal: 3.0 x 3.0 cm. Mid: 2.0 x 2.1 cm. Distal: 1.7 x 1.8 cm. PSV: 137 cm/s. The measurements of the common iliac arteries in maximum AP and TRV dimensions are as follows: Right Common Iliac Artery: 1.2 x 1.2 cm. Left Common Iliac Artery: 1.2 x 1.2 cm. US/US abdominal aortic aneurysm IMPRESSION: No abdominal aortic aneurysm. Based on published guidelines in J Am Yogesh Radiol 2013; 10(10):789-794 and J Vasc Surg. 2018; 67:2-77, the recommendation for an abdominal aortic aneurysm with diameter 3.0-3.4 cm is follow-up every 3 years.
== END 2023-08-19 07:52 | disposition home or self-care (01) ==
LOC: HO.US 07:51
PROVIDERS: PCP Family Medicine; Visit Provider Internal Medicine Cardiovascular Disease
DX: Z82.49 Family history of ischemic heart disease and other diseases of the circulatory system (principal)
CPT/HCPCS: 76706

== ENCOUNTER → 2023-09-10 07:52 | Outpatient (REF) | payer BC, SELFPAY ==
--- NOTE | ~2023-09-10 | NM_ITS ---
Exercise Myocardial perfusion study Indication: Chest pain to evaluate for myocardial ischemia Technique: The patient was brought in for an exercise perfusion study on 09/10/2023. Patient performed exercise as per Murtaza protocol and was injected 30 mCi of sestamibi was given intravenously one target HR was achieved. Images were obtained using the SPECT gamma camera interlaced with the gating device. Images were obtained in supine position. Resting perfusion study was performed on 09/12/2023. Patient was administered 30 mCi of sestamibi intravenously at rest. Images were then obtained in supine position. Images obtained with and without CT attenuation. Total DLP 99 mGy-cm. Images were processed with the software and compared side to side in short axis, horizontal long axis and vertical long axis views. Findings: The stress perfusion study showed both attenuated as well as non attenuated corrected images show normal uptake of radiotracer in all segments of LV myocardium. There is suggestion of left ventricle hypertrophy. The gated study shows normal LV systolic function with calculated LVEF of 67%. LV cavity is normal in size. The gated study shows normal systolic wall thickening and contraction of all segments. There is no transient ischemic dilation. Resting study shows attenuated corrected images show normal uptake of radiotracer in all segments of LV myocardium. Gating at rest reveals normal systolic wall motion with ejection fraction at 65%. The findings are consistent with normal myocardial perfusion. NM/NM danyel perf SPECT rest & str Impression: 1. Normal myocardial perfusion 2. Gated LVEF is 67% 3. Transient ischemic dilatation not present Stress EKG is positive for ischemia
--- NOTE | 2023-09-10 07:54 | CA_ITS ---
Acquisition Time: 2023-09-10 07:54:20 Total Exercise Time: 00:10:00 Test Indications: ABN EKG Medications: SEE H Protocol: MILTON Max HR: 150 BPM 90% of Pred: 166 BPM Max BP: 164/074 mmHG Max Work Load: 11.7 METS Exercise stress test exercise 10 minutes of Milton protocol achieving 89% MPHR, with moderate SOB, without chest pains, with isolated PVCs, with normotensive response to exercise, with baseline inferolateral abnormality with increased in ST depression of 1mm in leads 2,V4-V6. Breathing erturned to normal with rest. Nuclear images pending. Test reviewed with Dr. Pearson. Referred By: Marcial Emmanuel Overread By: Angelica Griffith
== END ==
LOC: HO.CARD 07:52
PROVIDERS: PCP Family Medicine; Visit Provider Internal Medicine Cardiovascular Disease
DX: R07.9 Chest pain, unspecified (principal); R94.31 Abnormal electrocardiogram [ECG] [EKG]
CPT/HCPCS: 78452; 93017; A9500

== ENCOUNTER → 2023-09-10 07:54 | Outpatient (BNV) | payer BC, SELFPAY | PROVIDERS: PCP Family Medicine; Visit Provider Nurse Practitioner | DX: R07.9 Chest pain, unspecified (principal) | CPT/HCPCS: 78452; 93016; 93018 ==

== ENCOUNTER 2023-09-17 14:37 | Outpatient (AMB) | payer BC, SELFPAY ==
[2023-09-17 14:39] VITALS: BP 124/72; PULSE 78; BMI 33.8
--- NOTE | 2023-09-17 14:39 | A.OFFVIS_ITS ---
Vital Signs 09/17/23 14:39 Height 5 ft 4 in Weight 197 lb 1.492 oz BMI 33.8 BP 124/72 Blood Pressure Location Lt brachial Position Sitting Pulse 78 Pulse Source Pulse Oximeter Intake Visit Reasons: r/s 09/05/23 4 wks followup after stress test Legal Administrator Required: No Allergies No Known Allergies Allergy (Verified 09/17/23 14:41) Medication List - Last Reconciled 09/17/23 by Rufina Amaya, DEEPALI-C albuterol sulfate 90 mcg/actuation (ProAir HFA) 2 puffs inhalation Q4-6H PRN 30 days amlodipine 10 mg PO DAILY 90 days atorvastatin 10 mg PO DAILY 90 days fluticasone propionate 110 mcg/actuation 2 puffs inhalation BID 30 days hydrochlorothiazide 25 mg PO DAILY 90 days HPI HPI r/s 09/05/23 4 wks followup after stress test: Details: Noni is a 53 yo female with PMH of HTN, VI with CPAP use, asthma, family hx of heart disease who was recently evaluated for chest discomfort and heart murmur. She underwent an nuclear stress test, coronary calcium score, abdominal aortic ultrasound and now presents for follow up. Today she reports that she does get a pressure/ heaviness in her chest at times. It occurs randomly and is relieved with the use of her albuteral inhaler. She denies other types of chest discomfort. No clear discomfort brought on by physical activity. She has sob at times which she relates to asthma. No PND, orthopnea or edema. No lightheadedness, presyncope, syncope. Good activity tolerance. Compliant with CPAP. Takes meds as directed. [facility] Medical History History of ITP Acid reflux Uterine cancer Asthma High blood pressure Sleep apnea Surgical History H/O: hysterectomy History of tonsillectomy Family History Mother High blood pressure High cholesterol Uterine cancer Father High blood pressure High cholesterol Stroke (cerebrum) Aortic aneurysm Cancer of esophagus Brother Diabetes 1.5, managed as type 1 Liver failure Kidney failure Heart failure Ketoacidosis Social History Housing: House Patient Tobacco Use Status: Never used Tobacco e-Cigarette/Vaping Use: Never Used service: No Current occupational status: employed 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 Cognitive needs: No Hearing needs: No Vision needs: Yes (patient wears prescription glasses) Review of Systems Const All systems reviewed & are unremarkable except as noted in HPI and below ENT Denies dizziness Card Details: Chest heaviness Denies chest pain, Denies chest pain at rest, Denies chest pain with activity, Denies rapid heart rate, Denies pedal edema, Denies edema, Denies leg edema, Denies lightheadedness, Denies palpitations, Denies dyspnea, Denies dyspnea on exertion and Denies orthopnea Resp Denies cough, Denies dyspnea and Denies dyspnea on exertion GI Denies hematochezia and Denies change in stool character Musc Denies abnormal gait, Denies limited range of motion, Denies muscle cramps, Denies muscle weakness, Denies numbness, Denies radiating pain into limb, Denies stiffness and Denies tingling Neuro Denies abnormal gait, Denies dizziness, Denies numbness and Denies tingling Endo Denies palpitations Physical Exam Vital Signs: Last Vital Signs Pulse 78 09/17/23 14:39 BP 124/72 09/17/23 14:39 BMI result Body Mass Index 33.8 Const General: cooperative, healthy appearing, comfortable and no acute distress Orientation/consciousness: patient oriented x3 Neck Neck: Yes normal visual inspection and Yes no JVD Chest Chest palpation & inspection: normal inspection of the chest Resp Effort & Inspection: normal respiratory effort Auscultation: clear to auscultation bilaterally, no crackles, no rales, no rhonchi and no wheezes Cardio Jugular venous distension: no JVD Rate: regular rate Heart sounds: S1 normal heart sound present, S2 normal heart sound present, no gallops, no murmurs and no rubs Neuro General: patient oriented x3 Extrem General: Yes normal to inspection, No no pedal edema and No calf tenderness Psych Appearance: grossly normal Mental Status: mental status grossly normal Speech and movement: Normal speech and movement present Assessment & Plan Assessment & Plan (1) Chest discomfort: Code(s): R07.89 - Other chest pain Category: Medical Plan: Pt reports intermittent shortness of breath and a tightness in her chest that improves with the use of albuteral inhaler. Cardiac risks of HTN, obesity, family hx. EKG showed diffuse ST changes in inferolateral leads which lead to further evaluation. She had recent echo showing EF> 70%, Mild AR, Ascending aorta 3.7 cm. She had an exercise nuclear stress test on 09/12/23 with exercise 10 min, moderate sob, EKG changes that did meet criteria for ischemia however followed by normal nuclear myocardial imaging. She had a coronary calcium score done on 08/20/23 with was 0. This confirms she has no coronary calcium build up / coronary stenosis. Her symptom is noncardiac and most likely related to her asthma. Reviewed all the above with her. She can further discuss symptoms with PCP if needed. (2) Abnormal EKG: Code(s): R94.31 - Abnormal electrocardiogram [ECG] [EKG] Category: Medical Plan: as above. Normal nuclear imaging. (3) Enlarged thoracic aorta: Code(s): I77.89 - Other specified disorders of arteries and arterioles Category: Medical Plan: Pt reports father had hx of ascending aortic aneurysm and from surgical complications age 60. She did have echo showing ascending aorta mildly dilated at 3.7 cm. Ultrasound of abdominal aorta shows no AAA. Her max dilation was 3 cm and report notes indicate a repeat should be done in 3 years, due 07/2026. Pt informed. Will plan for a repeat echo in 1 year to assess rate of change of her ascending aorta size. (4) Aortic regurgitation: Code(s): I35.1 - Nonrheumatic aortic (valve) insufficiency Category: Medical Plan: mild AR on echo. (5) Sleep apnea: Comment: Mild degree of sleep apnea. Code(s): G47.30 - Sleep apnea, unspecified Category: Medical Plan: Compliant with CPAP Plan Time spent on chart review, document, interview, assessment Coding Level of Care Code Est Pt Level 3 (11467) Diagnoses Chest discomfort R07.89 Abnormal EKG R94.31 Enlarged thoracic aorta I77.89 Aortic regurgitation I35.1 Sleep apnea G47.30 Time Spent (min) 24
== END 2023-09-17 15:04 | disposition home or self-care (01) ==
PROVIDERS: PCP Family Medicine; Visit Provider Nurse Practitioner Family
DX: R07.89 Other chest pain (principal); R94.31 Abnormal electrocardiogram [ECG] [EKG]; I77.89 Other specified disorders of arteries and arterioles; I35.1 Nonrheumatic aortic (valve) insufficiency; G47.30 Sleep apnea, unspecified
CPT/HCPCS: 99213

== ENCOUNTER → 2023-09-17 14:37 | Outpatient (BNVA) | payer BC, SELFPAY | PROVIDERS: PCP Family Medicine; Visit Provider Nurse Practitioner Family ==

== ENCOUNTER 2023-10-08 14:10 | Outpatient (AMB) | payer BC, SELFPAY ==
--- NOTE | 2023-10-08 14:21 | MHC.PC.OV ---
Vital Signs 10/08/23 14:22 Height 5 ft 4 in Weight 192 lb 4 oz BMI 33.0 BP 138/78 Blood Pressure Location Lt brachial Position Sitting Pulse 74 Pulse Source Pulse Oximeter Pulse Oximetry (%) 94 Oxygen Delivery Method Room Air Intake Visit Reasons: f/u pre-diabetes, HTN Intake Note: Patient is here for pre diabetes and hypertension. She would like to talk about a virus ? that has made her stuffy, and fever for 2 weeks. Allergies No Known Allergies Allergy (Verified 10/08/23 14:24) Tobacco use date assessed: 10/08/23 Dental Screening Dental Screen Date: 10/08/23 Did you have a dental visit in the last 12 months?: Yes Did you have a dental problem in the last 6 months where you did not have access to dental care?: No Was dental information given to patient?: Patient has dentist HPI f/u pre-diabetes, HTN HPI Details 53 y/o female presents to f/u pre-diabetes, hypertension. Last A1c 04/24/23 5.8%. A1c today 10/08/23 5.6%. Blood pressure today 138/78. She is on amlodipine 10mg, hydrochlorothiazide 25mg daily. Pt notes she is feeling unwell. She reports she went to a walk in clinic and had tested for viral illnesses. She reports a 104 degree fever/congestion and chills. [facility] Medical History History of ITP Acid reflux Uterine cancer Asthma High blood pressure Sleep apnea Surgical History H/O: hysterectomy History of tonsillectomy Family History Mother High blood pressure High cholesterol Uterine cancer Father High blood pressure High cholesterol Stroke (cerebrum) Aortic aneurysm Cancer of esophagus Brother Diabetes 1.5, managed as type 1 Liver failure Kidney failure Heart failure Ketoacidosis Social History Housing: House Patient Tobacco Use Status: Never used Tobacco e-Cigarette/Vaping Use: Never Used service: No Current occupational status: employed 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 Munir Holley, Nicky Guthrie, Emanuel Hammond and colleagues, with an educational joel from [employer]. Review of Systems Const Denies chills, Denies fatigue, Denies fever(s), Denies headache(s) and Denies weakness ENT Denies dizziness, Denies headache(s), Reports nasal congestion, Reports sinus pain and Reports sinus pressure Card Denies dyspnea Resp Denies cough, Denies dyspnea, Denies wheezing and Denies other (shortness of breath) Musc Denies numbness and Denies tingling Neuro Denies dizziness, Denies headache(s), Denies numbness, Denies tingling and Denies weakness Psych Denies anxiety and Denies depression Endo Denies fatigue Aller/Immun Denies wheezing Physical exam (Primary Care) Vital Signs: Last Vital Signs Pulse 74 10/08/23 14:22 BP 138/78 10/08/23 14:22 Pulse Ox 94 10/08/23 14:22 Oxygen Delivery Method Room Air 10/08/23 14:22 BMI result Body Mass Index 33.0 Tobacco/Smoking Status: Tobacco use Status Tobacco use date assessed 10/08/23 10/08/23 14:30 Patient Tobacco Use Status Never used Tobacco 10/08/23 14:30 e-Cigarette/Vaping Use Never Used 10/08/23 14:30 Thrive Assessment: Date of Thrive Assessment Date Thrive assessed 01/30/23 10/08/23 14:30 Const General: well developed; No acute distress Nutritional Appearance: well nourished Orientation/consciousness: patient oriented x3 HENMT Head: Yes normocephalic and Yes atraumatic Eyes General: appearance normal, both eyes and all related structures Pupils: Equal, round and reactive pupils present EOM: EOMs intact bilaterally Resp Effort & Inspection: normal respiratory effort Auscultation: clear to auscultation bilaterally Cardio Rate: regular rate Rhythm: regular rhythm Heart sounds: S1 normal heart sound present, S2 normal heart sound present, no gallops, Murmur heart sound present and no rubs Neuro General: patient oriented x3 and gait normal Cranial nerves: Yes Equal, round and reactive pupils present Psych Affect: normal affect Assessment and Plan Assessment & Plan (1) Pre-diabetes: Code(s): R73.03 - Prediabetes Plan: A1c?now?5.6%?which?is?improved?from?prior?5.8%. Insulin?resistance,?pre?diabetes Continue?working?at?diet?lower?in?sugars?and?starches Continue?working?at?weight?loss Encouraged?exercise (2) Chest discomfort: Code(s): R07.89 - Other chest pain Plan: Overall?cardiac?workup rules?out?cardiac?etiology?of?her?chest?discomfort. Cardiology?suggest?discomfort?may?be?secondary?to?pulmonary?issues?such?as?her?asthma. (3) Enlarged thoracic aorta: Code(s): I77.89 - Other specified disorders of arteries and arterioles Plan: Mildly?enlarged?thoracic?aorta?and?cardiology?will?follow-up?in?1?year (4) Hypertension: Code(s): I10 - Essential (primary) hypertension Plan: Blood?pressure?is?a?little?high?today?but?patient?is?sick?with?a?sinus?infection. Patient?has?enlarged?thoracic?aorta.??Blood?pressure?goal?is?less?than?130/80 Continue?current?medication (5) Sinusitis: Code(s): J32.9 - Chronic sinusitis, unspecified Plan: Moderately?severe?bacterial?sinus?infection?with?pus?and?blood?in?nasal?vault. Likely?started?as?viral?illness?or?allergies. Start?Augmentin Warm?compresses?at?sinuses?and?preauricular?regions Medications: New amoxicillin-pot clavulanate 500-125 mg (Augmentin) 1 tab PO Q12H 10 days 20 tabs 0RF Coding Level of Care Code Est Pt Level 4 (70567) Diagnoses Pre-diabetes R73.03 Chest discomfort R07.89 Enlarged thoracic aorta I77.89 Hypertension I10 Sinusitis J32.9
[2023-10-08 14:22] VITALS: BP 138/78; PULSE 74; O2SAT 94; BMI 33.0
== END 2023-10-08 15:01 | disposition home or self-care (01) ==
PROVIDERS: PCP Family Medicine; Visit Provider Family Medicine
DX: R73.03 Prediabetes (principal); I77.89 Other specified disorders of arteries and arterioles; R07.89 Other chest pain; I10 Essential (primary) hypertension; J32.9 Chronic sinusitis, unspecified
CPT/HCPCS: 99214

== ENCOUNTER → 2024-08-07 09:22 | Outpatient (REF) | payer BC, SELFPAY ==
--- NOTE | 2024-08-07 09:26 | CA_ITS ---
Transthoracic Echocardiogram Patient (Last, First, Middle): Noni Jama A Gender: Female Date of : 1970 Age: 54 Procedure Date: 08/07/2024 Procedure Type: Transthoracic Echocardiogram Location: OP Height: 162. cm Weight: 86.18 kg BSA: 1.91 m2 Heart Rate: 58 bpm BP: 132 / 70 mmHg Youth Development Professional: MONY Referring MD: Marcial Emmanuel MD Novelty Maker: Marcial Emmanuel MD Symptoms: I77.89 - Other specified disorders of arteries and arterioles Study Quality: Fair ECG Rhythm: Bradycardia Conclusions: - 1. Normal LV ejection fraction 65-70% with impaired relaxation filling pattern 2. Cardiac valvular Dopplers within normal limits 3. No gross pericardial effusion Findings Left Ventricle Normal left ventricular size, thickness, and systolic function. The visually estimated ejection fraction is between 65-70%. Spectral Doppler is indicative of an impaired relaxation filling pattern. E/E prime ratio is between 8 and 15 consistent with indeterminate filling pressures. Peak GLS is -18.7%, within normal limits. Wall Motion Rest Echo Findings The inferolateral wall and basal inferior segment are hypokinetic. All other scored wall segments showed normal motion. Right Ventricle Normal right ventricular cavity size and systolic function. Atria The left atrium is likely dilated. There is lipomatous hypertrophy of the interatrial septum. There is no evidence of interatrial shunt. The right atrium is normal in size. Aortic Valve Normal aortic valve structure and function. There is no aortic valve stenosis. There is no aortic valve regurgitation. Mitral Valve Normal mitral valve structure and function. There is trace mitral valve regurgitation. There is no mitral valve stenosis. Tricuspid Valve Likely normal tricuspid valve structure and function. Tricuspid regurgitation envelope is inadequate for calculation of right ventricular systolic pressure. Normal right atrial pressure. Great Vessels The aorta was not well visualized. The pulmonary artery was not well visualized. Venous The inferior vena cava is normal in size and collapses greater than 50% with inspiration. Pericardium/Pleural There is no evidence of pericardial effusion. Prior Study Comparison Changes noted compared to prior study dated: 02/26/2023. possible basal inferior inferolateral wall motion abnormality noted Measurements 2D Linear Measurements IVSd: 1.45 0.6-0.9/0.6-1.0 cm LVIDd: 4.13 3.9-5.3/4.2-5.9 cm LVIDd Index: 2.16 2.4-3.2/2.2-3.1 cm/m2 LVIDs: 2.73 2.0-3.6 cm LVPWd: 1.51 0.7-1.1 cm LA Diam: 3.90 2.7-3.8/3.0-4.0 cm LAIDs Index: 2.04 1.5-2.3 cm/m2 LV Mass: 297.39 67-162/88-224 g LV Mass Index: 155.70 43-95/49-115 g/m2 LVOT Diam: 2.10 3.0+(-)1.3 cm 2D Systolic Function EF 4C: 63.70 >55% EF 2C: 74.30 >55% EF BiP: 68.40 >55% Mitral Valve MV Pk E: 0.69 MV PK A: 0.74 MV Decel Time: 259.00 E/A: 0.90 E'Lateral: 7.83 E'Medial: 5.55 E/E' Med: 12.40 E/E' Lat: 8.80 PHT: 76.00 MVA PHT: 2.89 Decel Mckinley: 2.67 Aortic Valve AoV Pk Omer: 1.85 AoV Mn Omer: 1.38 AoV VTI: 0.44 AoV Pk Grad: 14.00 Aov Mn Grad: 9.00 NAJMA Cont.VTI: 3.17 LVOT LVOT Pk Omer: 1.64 LVOT Mn Omer: 1.28 LVOT VTI: 0.40 LVOT Pk Grad: 11.00 LVOT Mn Grad: 7.00 LVOT Diam: 2.10 LVOT Area: 3.46 Diastolic Function MV Pk E: 0.69 MV Pk A: 0.74 E/A: 0.90 E'Medial: 5.55 E/E' Med: 12.40 E' Laterial: 7.83 E/E' Lat: 8.80 Right Ventricle TAPSE (mm): 20.70 TVS' Omer: 12.90 Tricuspid Valve TR Pk Omer: 2.03 TR Pk Grad: 16.00 Great Vessels Aorta Sinus of Valsalva: 3.30 2.0-3.5 cm Ao Asc: 3.30 2.1-3.4 cm Ao Arch: 2.80 Pulmonary Valve PV Pk Omer: 0.99 Peak PV Grad: 4.00 Updated in Other Vendor System with Status of Final Marcial Emmanuel MD electronically signed on 08/08/2024 10:42:45 AM with status of Final
--- OUTSIDE RECORDS SUMMARY | 2024-08-07 09:53 | XMS_ITS | Encounter Summary ---
Author Organization [facility] Address [address] [place] [address] Care Team Providers Care Change Director Name Role Phone James Oro MD Primary Care Provider Unavailable Reason for Visit * Reason Comments Medication Refill Encounter Details Date Type Department Care Team (Late st Contact Info) Description 08/21/2022 Refill [facility] Department of Internal Medicine [address] [place] [phone] James Oro MD Needs valid address Social History Tobacco Use Types Packs/Day Years Used Date Smoking Tobacco: Never Assessed Comments Unknown Sex and Gender Information Value Date Recorded Sex Assigned at Not on file Legal Sex Female 11:17 PM EDT Gender Identity Not on file Sexual Orientation Not on file documented as of this encounter Plan of Treatment Not on file documented as of this encounter Visit Diagnoses Not on filedocumented in this encounter Care Teams Change Director Relationship Specialty Start Date End Date James Oro MD PCP - General Internal Medicine 02/13/19 02/03/23 documented as of this encounter
--- OUTSIDE RECORDS SUMMARY | 2024-08-07 09:53 | XMS_ITS ---
Author Name [facility] Organization Unknown History of Medication Use Medication Directions Dispensed Refills Start Date End Date Stat us ibuprofenTakeNo date recordedNo form recordedNo frequency recordedNo route recordedNo set duration recordedNo set duration amount recordedactiveNo dosage strength recordedNo dosage strength units of measure recorded active atorvastatinTake (or al)No date recordedtabletNo frequency recordedoralNo set duration recordedNo set duration amount [id number] active predniSONETake 2 tab let (oral) 1 time per day for 5 [id number] time per [id number] 10/02/2023 activ e Problems Problem Status Onset Date Problem Type Date of Resoluti on Source Hypertension active ProblemAct [facility] S[facility] Acute pharyngitis due to other specified organisms active 2023-10-02 ProblemAct [facility]YS[facility] Other specified abnormal findings of blood chemistry active ProblemAct [facility]PHYS[facility] Care Team Organization Name Specialty Phone Email Start Date End [facility] [employer] ([facility]) 03/06/2024 [facility] 10/02/2023 [facility] Not Found Primary Care 10/02/2023 [facility] PDaniella T[facility]NER Primary Care 07/17/2023 10/10/2023 [facility] DEE HALEIE Primary Care
--- OUTSIDE RECORDS SUMMARY | 2024-08-07 09:53 | XMS_ITS | Encounter Summary ---
Author Organization [facility] Address [address] [place] [address] Care Team Providers Care Social Work Program Coordinator Name Role Phone James Oro MD Primary Care Provider Unavailable Reason for Visit * Reason Comments Medication Refill Encounter Details Date Type Department Care Team (Late st Contact Info) Description 08/17/2022 Refill [facility] Department of Internal Medicine [address] [place] [phone] James Oro MD Needs valid address Essential (primary) hypertension Social History Tobacco Use Types Packs/Day Years Used Date Smoking Tobacco: Never Assessed Comments Unknown Sex and Gender Information Value Date Recorded Sex Assigned at Not on file Legal Sex Female 11:17 PM EDT Gender Identity Not on file Sexual Orientation Not on file documented as of this encounter Plan of Treatment Not on file documented as of this encounter Visit Diagnoses Diagnosis Essential (primary) hypertension Unspecified essential hypertension documented in this encounter Care Teams Social Work Program Coordinator Relationship Specialty Start Date End Date James Oro MD PCP - General Internal Medicine 02/13/19 02/03/23 documented as of this encounter
--- OUTSIDE RECORDS SUMMARY | 2024-08-07 09:53 | XMS_ITS | Clinical Summary ---
Author Organization [facility] Address [address] [place] [address] Care Team Providers Care Modeler Name Role Phone Unavailable Primary Care Provider Unavailabl e Medications amLODIPine (NORVASC) 10 MG tabletIndication s:Hypertension, unspecified type Take 1 tablet (10 mg total) by mouth daily. 90 tablet 08/31/2022 Active hydroCHLOROthiaz obie (HYDRODIURIL) 25 MG tabletIndication s:Hypertension, unspecified type TAKE 1 TABLET (25 MG TOTAL) BY MOUTH DAILY. 90 tablet 11/28/2022 Active Social History Tobacco Use Types Packs/Day Years Used Date Smoking Tobacco: Never Assessed Comments Unknown Sex and Gender Information Value Date Recorded Sex Assigned at Not on file Legal Sex Female 11:17 PM EDT Gender Identity Not on file Sexual Orientation Not on file Plan of Treatment Health Maintenance Due Date Last Done Comments Hepatitis C Virus Screening 1970 HIV Screening 1982 DTaP/Tdap/Td Vaccines (1 - Tdap) 02/20/1988 Hepatitis B Vaccines (1 of 3 - 19+ 3-dose series) 02/20/1988 Pap Smear (Ages 21-65) 1990 Mammogram 2009 Colonoscopy 2014 Pneumococcal Vaccines 50+ (1 of 1 - PCV) 2019 Zoster (Shingles) Vaccine (1 of 2) 2019 Influenza Vaccine 11/21/2023 03/02/2020, , 01/23/2014, Additional history exists COVID-19 Vaccine (2023- season) 2023 03/10/2021, 07/09/2020, 06/11/2020 Pneumococcal Vaccine: Pediatric (0-5 Years) and At-Risk Patients (6 to 49 Years) Aged Out No longer eligible based on patient's age to complete this topic Insurance
--- OUTSIDE RECORDS SUMMARY | 2024-08-07 09:53 | XMS_ITS | Encounter Summary ---
Author Organization [facility] Address [address] [place] [address] Care Team Providers Care Drop Hammer Mechanic Name Role Phone James Oro MD Primary Care Provider Unavailable Encounter Details Date Type Department Care Team (Late st Contact Info) Description 07/12/2022 Scanned Document [facility] Department of Internal Medicine [address] [place] [phone] James Oro MD Needs valid address Social [...] on filedocumented in this encounter Care Teams Drop Hammer Mechanic Relationship Specialty Start Date End Date James Oro MD PCP - General Internal Medicine 02/13/19 02/03/23 documented as of this encounter
== END ==
LOC: HO.CARD 09:22
PROVIDERS: PCP Family Medicine; Visit Provider Internal Medicine Cardiovascular Disease
DX: I77.89 Other specified disorders of arteries and arterioles (principal)
CPT/HCPCS: 93306

== ENCOUNTER → 2024-08-07 09:26 | Outpatient (BNV) | payer BC, SELFPAY | PROVIDERS: PCP Family Medicine; Visit Provider Internal Medicine Cardiovascular Disease | DX: I51.89 Other ill-defined heart diseases (principal); I77.89 Other specified disorders of arteries and arterioles | CPT/HCPCS: 93306; 93356 ==

== ENCOUNTER 2024-09-02 14:21 | Outpatient (AMB) | payer BC, SELFPAY ==
--- OUTSIDE RECORDS SUMMARY | 2024-09-02 14:24 | XMS_ITS | Encounter Summary ---
Author Organization [facility] Address [address] [place] [address] Care Team Providers Care Records Administrator Name Role Phone James Oro MD Primary Care Provider Unavailable Reason for Visit * Reason Comments Medication Refill Encounter Details Date Type Department Care Team (Late st Contact Info) Description 08/21/2022 Refill [facility] Department of Internal Medicine [address] [place] [phone] James Oro MD Social History Tobacco Use Types Packs/Day Years [...] on filedocumented in this encounter Care Teams Records Administrator Relationship Specialty Start Date End Date James Oro MD PCP - General Internal Medicine 02/13/19 02/03/23 documented as of this encounter
--- OUTSIDE RECORDS SUMMARY | 2024-09-02 14:24 | XMS_ITS | Encounter Summary ---
Author Organization [facility] Address [address] [place] [address] Care Team Providers Care Sandwich Board Carrier Name Role Phone James Oro MD Primary Care Provider Unavailable Reason for Visit * Reason Comments Medication Refill Encounter Details Date Type Department Care Team (Late st Contact Info) Description 08/17/2022 Refill [facility] Department of Internal Medicine [address] [place] [phone] James Oro MD Essential (primary) hypertension Social History Tobacco Use [...] hypertension documented in this encounter Care Teams Sandwich Board Carrier Relationship Specialty Start Date End Date James Oro MD PCP - General Internal Medicine 02/13/19 02/03/23 documented as of this encounter
--- OUTSIDE RECORDS SUMMARY | 2024-09-02 14:25 | XMS_ITS | Clinical Summary ---
Author Organization [facility] Address [address] [place] [address] Care Team Providers Care Safety Administrator Name Role Phone Unavailable Primary Care Provider [...] Zoster (Shingles) Vaccine (1 of 2) 2019 COVID-19 Vaccine (2023-2 5 season) 2023 03/10/2021, 07/09/2020, 06/11/2020 Influenza Vaccine 11/20/2024 03/02/2020, , 01/23/2014, Additional history exists Insurance
--- OUTSIDE RECORDS SUMMARY | 2024-09-02 14:25 | XMS_ITS | Encounter Summary ---
Author Organization Formerly [facility] Address [address] [place] [address] Care Team Providers Care Compliance Field Technician Name Role Phone James Oro MD Primary Care Provider Unavailable Encounter Details Date Type Department Care Team (Late st Contact Info) Description 07/12/2022 Scanned Document [facility] Department of Internal Medicine [address] 1[address] [place] [address] James Oro MD Social History Tobacco Use [...] on filedocumented in this encounter Care Teams Compliance Field Technician Relationship Specialty Start Date End Date James Oro MD PCP - General Internal Medicine 02/13/19 02/03/23 documented as of this encounter
[2024-09-02 14:48] VITALS: BP 120/76; PULSE 65; O2SAT 94
--- NOTE | 2024-09-02 14:48 | A.OFFVIS_ITS ---
Vital Signs 09/02/24 14:48 Height 5 ft 4 in BP 120/76 Blood Pressure Location Rt brachial Position Sitting Pulse 65 Pulse Source Pulse Oximeter Pulse Oximetry (%) 94 Oxygen Delivery Method Room Air Intake Visit Reasons: 6 month F/U Intake Note: Patient presents 6 month follow up for VI, compliance in chart Office Manager Executive Assistant Required: No Accompanied by: Self / Same As Patient Allergies No Known Allergies Allergy (Verified 10/08/23 14:24) Medication List - Last Reconciled 09/02/24 by JUSTINE Dougherty albuterol sulfate 90 mcg/actuation (Ventolin HFA) 2 puffs inhalation Q6H PRN albuterol sulfate 90 mcg/actuation (ProAir HFA) 2 puffs inhalation Q4-6H PRN 30 days amlodipine 10 mg PO DAILY 90 days amoxicillin-pot clavulanate 500-125 mg (Augmentin) 1 tab PO Q12H 10 days atorvastatin 10 mg PO DAILY 90 days azelastine 2 sprays intranasal Q12H 30 days fluticasone propionate 110 mcg/actuation 2 puffs inhalation BID 30 days hydrochlorothiazide 25 mg PO DAILY 90 days HPI Comments Details: 54-year-old female presents for follow-up of sleep apnea Patient reports she typically uses her CPAP machine consistently. She generally sleeps well with the use and has improved daytime energy. However, she may occasionally miss some nights using her CPAP due to increase allergy/sinus/nasal symptoms. She previously tried a Neti pot, did not find it beneficial or well tolerated. She does have Flonase, she is not fully effective. Baseline, June 2022, home sleep study result was mild degree of sleep apnea. The AHI was 7/hr, and oxygen lilly was 81%. Sleep study was performed through [facility] 05/28/2024 - 08/25/2024 PAP compliance report [facility] Overall usage 91% Usage greater than 4 hours 67% Average usage on days used 5 hours and 46 minutes AirSense 10 [employer] Serial number [id number] APAP 5-15 cm H2O with EPR set to 2 Maximum PAP pressure 14 cm H2O Median leaks 1.6 L/min Residual AHI 0.3 events per hour [facility] Medical History History of ITP Acid reflux Uterine cancer Asthma High blood pressure Sleep apnea Surgical History H/O: hysterectomy History of tonsillectomy Family History Mother High blood pressure High cholesterol Uterine cancer Father High blood pressure High cholesterol Stroke (cerebrum) Aortic aneurysm Cancer of esophagus Brother Diabetes 1.5, managed as type 1 Liver failure Kidney failure Heart failure Ketoacidosis Social History Housing: House Patient Tobacco Use Status: Never used Tobacco e-Cigarette/Vaping Use: Never Used service: No Current occupational status: employed 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 Cognitive needs: No Hearing needs: No Vision needs: Yes (patient wears prescription glasses) Physical Exam Vital Signs: Last Vital Signs Pulse 65 09/02/24 14:48 BP 120/76 09/02/24 14:48 Pulse Ox 94 09/02/24 14:48 Oxygen Delivery Method Room Air 09/02/24 14:48 Const General: no acute distress Orientation/consciousness: patient oriented x3 Resp Effort & Inspection: normal respiratory effort and able to speak in complete sentences Neuro General: patient oriented x3 Psych Mental Status: mental status grossly normal Speech and movement: Clear speech present Attitude: cooperative Assessment & Plan Assessment & Plan (1) Sleep apnea: Comment: Mild degree of sleep apnea. Code(s): G47.30 - Sleep apnea, unspecified Category: Medical (2) Chronic congestion of paranasal sinus: Code(s): J32.9 - Chronic sinusitis, unspecified Category: Medical Plan For VI: Continue APAP cmH2O w/ EPR 2 nightly > 4 hours, as pt continues to have good clinical effect from use. * Clean CPAP machine and supplies routinely. * Change CPAP supplies routinely. * Use distilled water in CPAP water reservoir. To optimize PAP therapy, trial using Azelastine 137 mg nasal spray- 2 sprays daily at bedtime or twice a day as needed, following administration of saline rinse and Flonase. Pt to contact us or respiratory company with any questions or concerns. Pt to follow-up in 12 months or sooner prn. Medications: New azelastine administer into each nostril 2 sprays intranasal Q12H 30 mL 6RF 30 days Coding Level of Care Code Est Pt Level 3 (49409) Diagnoses Sleep apnea G47.30 Chronic congestion of paranasal sinus J32.9
== END 2024-09-02 15:33 | disposition home or self-care (01) ==
LOC: HO.HSMS 14:22
PROVIDERS: Visit Provider Nurse Practitioner Family
DX: G47.30 Sleep apnea, unspecified (principal); J32.9 Chronic sinusitis, unspecified
CPT/HCPCS: 99213

== ENCOUNTER → 2024-09-02 14:21 | Outpatient (BNVA) | payer BC, SELFPAY | PROVIDERS: Visit Provider Nurse Practitioner Family ==

== ENCOUNTER 2024-09-15 12:19 | Outpatient (AMB) | payer BC, SELFPAY ==
[2024-09-15 12:30] VITALS: BP 130/78; PULSE 63; O2SAT 97; BMI 34.2
--- NOTE | 2024-09-15 12:30 | A.OFFVIS_ITS ---
Vital Signs 09/15/24 12:30 Height 5 ft 4 in Weight 199 lb 4.766 oz BMI 34.2 BP 130/78 Blood Pressure Location Rt brachial Position Sitting Pulse 63 Pulse Source Pulse Oximeter Pulse Oximetry (%) 97 Oxygen Delivery Method Room Air Intake Visit Reasons: 1 yr s/p echo Intake Note: Patient presents for follow up Allergies No Known Allergies Allergy (Verified 09/15/24 12:33) HPI Comments Details: Noni comes for follow-up. She has had no new cardiac complaints. She says a blood pressure remains well controlled between 125 in 130 systolic at home. She tries to exercise regularly and walks 2 miles about 40 minutes without having any significant exertional symptoms. No chest pain or shortness of breath. Echocardiogram shows no significant changes. No recent lipid panel is noted. No lightheadedness, syncope. No prolonged palpitation irregular heartbeat. [facility] Medical History History of ITP Acid reflux Uterine cancer Asthma High blood pressure Sleep apnea Surgical History H/O: hysterectomy History of tonsillectomy Family History Mother High blood pressure High cholesterol Uterine cancer Father High blood pressure High cholesterol Stroke (cerebrum) Aortic aneurysm Cancer of esophagus Brother Diabetes 1.5, managed as type 1 Liver failure Kidney failure Heart failure Ketoacidosis Social History Housing: House Patient Tobacco Use Status: Never used Tobacco e-Cigarette/Vaping Use: Never Used service: No Current occupational status: employed 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 Cognitive needs: No Hearing needs: No Vision needs: Yes (patient wears prescription glasses) Review of Systems Const All systems reviewed & are unremarkable except as noted in HPI and below ENT Denies dizziness Card Details: Chest heaviness Denies chest pain, Denies chest pain at rest, Denies chest pain with activity, Denies rapid heart rate, Denies pedal edema, Denies edema, Denies leg edema, Denies lightheadedness, Denies palpitations, Denies dyspnea, Denies dyspnea on exertion and Denies orthopnea Resp Denies cough, Denies dyspnea and Denies dyspnea on exertion GI Denies hematochezia and Denies change in stool character Musc Denies abnormal gait, Denies limited range of motion, Denies muscle cramps, Denies muscle weakness, Denies numbness, Denies radiating pain into limb, Denies stiffness and Denies tingling Neuro Denies abnormal gait, Denies dizziness, Denies numbness and Denies tingling Endo Denies palpitations Physical Exam Vital Signs: Last Vital Signs Pulse 63 09/15/24 12:30 BP 130/78 09/15/24 12:30 Pulse Ox 97 09/15/24 12:30 Oxygen Delivery Method Room Air 09/15/24 12:30 BMI result Body Mass Index 34.2 Const General: cooperative, comfortable, no acute distress, alert, awake, Physically active and well groomed Nutritional Appearance: obese Orientation/consciousness: patient oriented x3 Limitations: no limitations HEENT Head: Yes normocephalic and Yes atraumatic Neck Neck: Yes trachea midline, Yes supple and Yes no JVD Resp Effort & Inspection: normal respiratory effort Auscultation: clear to auscultation bilaterally Cardio Jugular venous distension: no JVD Palpation: normal PMI Rate: regular rate Rhythm: regular rhythm Heart sounds: S1 normal heart sound present, S2 normal heart sound present, no click, no gallops and Murmur heart sound present systolic early Peripheral pulses: Peripheral pulses 2+ throughout GI Auscultation: normal bowel sounds Skin General skin exam: no rashes or lesions noted Neuro General: patient oriented x3 and no focal motor deficits Extrem General: Yes no clubbing, cyanosis or edema Psych Appearance: grossly normal Office Procedures EKG Details: EKG shows normal sinus rhythm with LVH with repolarization abnormality [id number], Complete Assessment & Plan Assessment & Plan (1) Enlarged thoracic aorta: Code(s): I77.89 - Other specified disorders of arteries and arterioles Category: Medical Plan: Mildly enlarged thoracic aorta which does not require any further surgical intervention. Continue aggressive medical intervention with aggressive blood pressure control. Continue follow-up echocardiogram in a year's time. Advised to avoid sudden strenuous isometric exercise. Continue statin therapy with target goal LDL less than 100 mg/dL. Advised lipid panel in near future. (2) Hypertension: Code(s): I10 - Essential (primary) hypertension Category: Medical Plan: Hypertension which is currently well optimized. She has no exertional symptoms with activity. Her EKGs shows changes suggestive of hypertensive heart disease. At this point time a blood pressure is well controlled on dual therapy. Continue the same. Advised to monitor blood pressure at home maintain a log. Goal blood pressure less than 130/84. Low-salt diet was discussed. Will follow up in the clinic in 1 year's time, sooner p.r.n.. Thank you for al lowing me to partake in her care Orders: Orders CA echo transthoracic complete 1 Year I77.89 - Other specified disorders of arteries and arterioles Lipid Panel Today I77.89 - Other specified disorders of arteries and arterioles Basic Metabolic Panel Today I77.89 - Other specified disorders of arteries and arterioles Coding Level of Care Code Est Pt Level 4 (03656) Complex EM visit Add On G2211 Diagnoses Enlarged thoracic aorta I77.89 Hypertension I10 CPT Codes EKG - CPT: 92830-[id number], Complete ([id number])
--- OUTSIDE RECORDS SUMMARY | 2024-09-15 12:32 | XMS_ITS | Encounter Summary ---
Author Organization [facility] Address [address] [place] [address] Care Team Providers Care Development Scientist Name Role Phone James Oro MD Primary Care Provider Unavailable Reason for Visit * Reason Comments Medication Refill Encounter Details Date Type Department Care Team (Late st Contact Info) Description 08/21/2022 Refill [facility] Department of Internal Medicine [address] [place] [phone] James Oro MD Social History Tobacco Use [...] on filedocumented in this encounter Care Teams Development Scientist Relationship Specialty Start Date End Date James Oro MD PCP - General Internal Medicine 02/13/19 02/03/23 documented as of this encounter
== END 2024-09-15 12:55 | disposition home or self-care (01) ==
LOC: HO.HCS 12:20
PROVIDERS: PCP Family Medicine; Visit Provider Internal Medicine Cardiovascular Disease
DX: I77.89 Other specified disorders of arteries and arterioles (principal); I10 Essential (primary) hypertension
CPT/HCPCS: 93010; 99214

== ENCOUNTER → 2024-09-15 12:19 | Outpatient (BNVA) | payer BC, SELFPAY | PROVIDERS: PCP Family Medicine; Visit Provider Internal Medicine Cardiovascular Disease | DX: I77.89 Other specified disorders of arteries and arterioles (principal); I45.81 Long QT syndrome; I10 Essential (primary) hypertension | CPT/HCPCS: 93005 ==

== ENCOUNTER 2024-11-13 06:24 | Outpatient (REF) | payer BC, SELFPAY ==
--- OUTSIDE RECORDS SUMMARY | 2024-11-13 06:26 | XMS_ITS | Encounter Summary ---
Author Organization [facility] Address [address] [place] [address] Care Team Providers Care Supervisor Boiler Repair Name Role Phone James Oro MD Primary Care Provider Unavailable Reason for Visit * Reason Comments Medication Refill Encounter Details Date Type Department Care Team (Late st Contact Info) Description 08/21/2022 Refill [facility] Department of Internal Medicine [address] [place] [phone] James Oro MD Social History Tobacco Use [...] on filedocumented in this encounter Care Teams Supervisor Boiler Repair Relationship Specialty Start Date End Date James Oro MD PCP - General Internal Medicine 02/13/19 02/03/23 documented as of this encounter
[2024-11-13 07:41] LABS: Blood Urea Nitrogen 17 mg/dL (9-16); Calcium 9.8 mg/dL (8.4-10.2); Cholesterol 178 mg/dL (<200); Estimated Glomerular Filt Rate > 60; HDL Cholesterol 44 mg/dL (>40); Triglycerides 170 mg/dL (<150)
[2024-11-13 07:47] LABS: Anion Gap 15 (12-20); Carbon Dioxide 29 mmol/L (22-29); Chloride 102 mmol/L (96-108); Sodium 143 mmol/L (135-145)
[2024-11-13 08:20] LABS: Potassium 2.9 mmol/L (3.3-5.1)
== END 2024-11-13 06:25 | disposition home or self-care (01) ==
LOC: HO.LAB 06:24
PROVIDERS: PCP Family Medicine; Visit Provider Internal Medicine Cardiovascular Disease
DX: I77.89 Other specified disorders of arteries and arterioles (principal)
CPT/HCPCS: 36415; 80048; 80061

== ENCOUNTER 2024-11-17 08:12 | Outpatient (REF) | payer BC, SELFPAY ==
[2024-11-17 11:46] LABS: Anion Gap 12 (12-20); Blood Urea Nitrogen 17 mg/dL (9-16); Calcium 9.3 mg/dL (8.4-10.2); Carbon Dioxide 28 mmol/L (22-29); Chloride 107 mmol/L (96-108); Estimated Glomerular Filt Rate > 60; Potassium 3.4 mmol/L (3.3-5.1); Sodium 144 mmol/L (135-145)
== END 2024-11-17 08:13 | disposition home or self-care (01) ==
LOC: HO.WFDLDS 08:12
PROVIDERS: Visit Provider Internal Medicine Cardiovascular Disease
DX: I10 Essential (primary) hypertension (principal)
CPT/HCPCS: 36415; 80048

== ENCOUNTER 2025-02-05 16:16 | Outpatient (AMB) | payer BC, SELFPAY ==
--- NOTE | 2025-02-05 16:17 | MHC.PC.OV ---
Vital Signs 02/05/25 16:21 Height 5 ft 4 in Weight 201 lb 2 oz BMI 34.5 BP 120/78 Blood Pressure Location Rt brachial Position Sitting Respiration 17 Pulse 69 Pulse Source Pulse Oximeter Temp 97.9 F Temp Source Temporal Artery Scan Pulse Oximetry (%) 95 Oxygen Delivery Method Room Air Intake Visit Reasons: follow-up hypertension and pre diabetes. Intake Note: Noni presents in the office today for a follow up to prediabtes and hypertension. Allergies No Known Allergies Allergy (Verified 02/05/25 16:20) Medication List - Last Reconciled 02/05/25 by Sampson Guerra MD albuterol sulfate 90 mcg/actuation (Ventolin HFA) 2 puffs inhalation Q6H PRN albuterol sulfate 90 mcg/actuation (ProAir HFA) 2 puffs inhalation Q4-6H PRN 30 days amlodipine 10 mg PO DAILY 90 days atorvastatin 10 mg PO DAILY 90 days azelastine 2 sprays intranasal Q12H 30 days hydrochlorothiazide 50 mg PO DAILY 90 days potassium chloride ER (K-Tab) 20 mEq PO ONCE 90 days Tobacco use date assessed: 02/05/25 Dental Screening Dental Screen Date: 02/05/25 Did you have a dental visit in the last 12 months?: Yes Did you have a dental problem in the last 6 months where you did not have access to dental care?: No Was dental information given to patient?: Patient has dentist HPI follow-up hypertension and pre diabetes. HPI Details 54 y/o male presents to f/u HTN, pre-diabetes. BP today 120/78, 69p. He is on amlodipine 10mg, hydrochlorothiazide 50mg daily. A1c today 02/05/25 5.9%. Pt notes she is overdue for her mammogram. [facility] Medical History History of ITP Acid reflux Uterine cancer Asthma High blood pressure Sleep apnea Surgical History H/O: hysterectomy History of tonsillectomy Family History Mother High blood pressure High cholesterol Uterine cancer Father High blood pressure High cholesterol Stroke (cerebrum) Aortic aneurysm Cancer of esophagus Brother Diabetes 1.5, managed as type 1 Liver failure Kidney failure Heart failure Ketoacidosis Social History (Updated 02/05/25 @ 16:21 by Mitzi Yates [facility]) Housing: House Alcohol intake: current Patient Tobacco Use Status: Never used Tobacco e-Cigarette/Vaping Use: Never Used Second Hand Smoke Exposure: No service: No Current occupational status: employed 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 1. Little interest or pleasure in doing things: not at all 2. Feeling down, depressed, or hopeless: not at all 3. Trouble falling or staying asleep, or sleeping too much: not at all 4. Feeling tired or having little energy: not at all 5. Poor appetite or overeating: not at all 6. Feeling bad about yourself - or that you are a failure or have let yourself or your family down: not at all 7. Trouble concentrating on things, such as reading the newspaper or watching television: not at all 8. Moving or speaking so slowly that other people could have noticed. Or the opposite - being so fidgety or restless that you have been moving around a lot more than usual: not at all 9. Thoughts that you would be better off or of hurting yourself in some way: not at all Total score: 0 Source: Developed by Drs. Munir Holley, Nicky Guthire, Emanuel Hammond and colleagues, with an educational joel from [employer]. Thrive Questionnaire Date Thrive assessed: 02/05/25 I am a: Patient What is your living situation today?: I have a steady place to live Within the past 12 months, did the food you bought not last and you didn't have the money to get more?: Never true Within the past 12 months, did you worry whether your food would run out before you got money to buy more?: Never true Do you have trouble paying for medicines?: No Do you have trouble getting transportation to medical appointments?: No Do you have trouble paying your heating and electricity bill?: No Do you have trouble taking care of your child, family member or friend?: No Do you have trouble with day-to-day activities such as bathing, preparing meals, shopping, managing finances, etc.?: No Are you currently unemployed and looking for a job?: No Are you interested in more education?: No Please select the resources that you would like help with: None Currently or been in a relationship where the following occur: No concerns reported THRIVE Score: 0 AUDIT C Alcohol Use Questionnaire (AUDIT-C) 1. How often do you have a drink containing alcohol?: Monthly or less 2. How many drinks containing alcohol do you have on a typical day when you are drinking?: 1 or 2 3. How often do you have six or more drinks on one occasion?: Never Total Score: 1 AUGUSTINE-7 AMB Questionnaire AUGUSTINE-7 Date AUGUSTINE - 7 assessed: 01/30/23 Feeling nervous, anxious, or on edge: 0 = Not at all Not being able to stop or control worryin = Not at all Worrying too much about different things: 0 = Not at all Trouble relaxin = Not at all Being so restless that it is hard to sit still: 0 = Not at all Becoming easily annoyed or irritable: 0 = Not at all Feeling afraid as if something awful might happen: 0 = Not at all Total AUGUSTINE-7 score (0-4 normal; 5-9 mild; 10-14 moderate; 15-21 severe): 0 Source: Developed by Drs. Munir Holley, Nicky Guthrie, Emanuel Hammond and colleagues, with an educational joel from [employer]. Review of Systems Const Denies chills, Denies fatigue, Denies fever(s), Denies headache(s) and Denies weakness ENT Denies dizziness and Denies headache(s) Card Denies dyspnea Resp Denies cough, Denies dyspnea, Denies wheezing and Denies other (shortness of breath) Musc Denies numbness and Denies tingling Neuro Denies dizziness, Denies headache(s), Denies numbness, Denies tingling and Denies weakness Psych Denies anxiety and Denies depression Endo Denies fatigue Aller/Immun Denies wheezing Physical exam (Primary Care) Vital Signs: Last Vital Signs Temp 97.9 F 02/05/25 16:21 Pulse 69 02/05/25 16:21 Resp 17 02/05/25 16:21 BP 120/78 02/05/25 16:21 Pulse Ox 95 02/05/25 16:21 Oxygen Delivery Method Room Air 02/05/25 16:21 BMI result Body Mass Index 34.5 Tobacco/Smoking Status: Tobacco use Status Tobacco use date assessed 02/05/25 02/05/25 16:24 Patient Tobacco Use Status Never used Tobacco 02/05/25 16:21 e-Cigarette/Vaping Use Never Used 02/05/25 16:21 PHQ-9: PHQ-9 Score PHQ-9: Total score 0 02/05/25 16:33 Thrive Assessment: Date of Thrive Assessment Date Thrive assessed 02/05/25 02/05/25 16:19 Currently or been in a relationship where the following occur: No concerns reported Const General: well developed; No acute distress Nutritional Appearance: well nourished Orientation/consciousness: patient oriented x3 HENMT Head: Yes normocephalic and Yes atraumatic Eyes General: appearance normal, both eyes and all related structures Pupils: Equal, round and reactive pupils present EOM: EOMs intact bilaterally Resp Effort & Inspection: normal respiratory effort Auscultation: clear to auscultation bilaterally Cardio Rate: regular rate Rhythm: regular rhythm Heart sounds: S1 normal heart sound present, S2 normal heart sound present, no gallops, no murmurs and no rubs Neuro General: patient oriented x3 and gait normal Cranial nerves: Yes Equal, round and reactive pupils present Psych Affect: normal affect Results AMB Hemoglobin A1c AMB Hemoglobin A1c 5.9 % Last Edit by Nadia Lucas CMA on 02/05/25 16:28 Results Reviewed Results Reviewed: Laboratory Last Values Hgb A1c (Clinic) 5.9 % (4.0-6.0) 02/05/25 16:23 Coding Level of Care Code Est Pt Level 4 (73248) Diagnoses Hypertension I10 Pre-diabetes R73.03 Breast cancer screening by mammogram Z12.31 Enlarged thoracic aorta I77.89 Assessment & Plan Assessment & Plan (1) Hypertension: Code(s): I10 - Essential (primary) hypertension Category: Medical Plan: Blood pressure appears well controlled. Goal is less than 130/80 Continue current medication (2) Pre-diabetes: Code(s): R73.03 - Prediabetes Category: Medical Plan: A1c 5.9%. Still in pre diabetes range though has climbed from 5.6% at last check Encouraged diet low in sugars and starches (3) Breast cancer screening by mammogram: Code(s): Z12.31 - Encounter for screening mammogram for malignant neoplasm of breast Category: Medical Plan: Patient notes that she is due for a mammogram and wants to call [facility] herself She can let me know if she needs an order. (4) Enlarged thoracic aorta: Code(s): I77.89 - Other specified disorders of arteries and arterioles Category: Medical Plan: Last echo showed no significant changes Stable Patient saw Cardiology recently. Annual echocardiogram is already ordered Follow-up with Cardiology as recommended Orders: Orders AMB Hemoglobin A1c Today R73.03 - Prediabetes
[2025-02-05 16:21] VITALS: BP 120/78; PULSE 69; RESP 17; TEMP 36.6; O2SAT 95; BMI 34.5
--- OUTSIDE RECORDS SUMMARY | 2025-02-05 18:26 | XMS_ITS | Clinical Summary ---
Author Organization [facility] Address [address] [place] [address] Care Team Providers Care Optical Sales Associate Name Role Phone Unavailable Primary Care Provider [...] Vaccine (1 of 2) 2019 Influenza Vaccine 11/20/2024 03/02/2020, , 01/23/2014, Additional history exists COVID-19 Vaccine (2024-2 6 season) 2024 03/10/2021, 07/09/2020, 06/11/2020 RSV Vaccine 50 years and old er and Patients (1 - 1-dose 75+ series) 02/20/2044 Insurance HMO
--- OUTSIDE RECORDS SUMMARY | 2025-02-05 18:26 | XMS_ITS | Encounter Summary ---
Author Organization [facility] Address [address] [place] [address] Care Team Providers Care High School Music Teacher Name Role Phone James Oro MD Primary Care Provider Unavailable Reason for Visit * Reason Comments Medication Refill Encounter Details Date Type Department Care Team (Late st Contact Info) Description 08/17/2022 Refill [facility] Department of Internal Medicine [address] [place] [phone] James Oro MD Essential (primary) hypertension Social [...] hypertension documented in this encounter Care Teams High School Music Teacher Relationship Specialty Start Date End Date James Oro MD PCP - General Internal Medicine 02/13/19 02/03/23 documented as of this encounter
--- OUTSIDE RECORDS SUMMARY | 2025-02-05 18:26 | XMS_ITS | Encounter Summary ---
Author Organization [facility] Address [address] [place] [address] Care Team Providers Care Medical Facilities Section Director Name Role Phone James Oro MD Primary Care Provider Unavailable Reason for Visit * Reason Comments Medication Refill Encounter Details Date Type Department Care Team (Late st Contact Info) Description 08/21/2022 Refill [facility] Department of Internal Medicine [address] [place] [phone] James Oro MD Social History Tobacco Use [...] on filedocumented in this encounter Care Teams Medical Facilities Section Director Relationship Specialty Start Date End Date James Oro MD PCP - General Internal Medicine 02/13/19 02/03/23 documented as of this encounter
--- OUTSIDE RECORDS SUMMARY | 2025-02-05 18:26 | XMS_ITS | Encounter Summary ---
Author Organization [facility] Address [address] [place] [address] Care Team Providers Care Sorter Pricer Name Role Phone James Oro MD Primary Care Provider Unavailable Encounter Details Date Type Department Care Team (Late st Contact Info) Description 07/12/2022 Scanned Document [facility] Department of Internal Medicine [address] [place] [phone] James Oro MD Social History [...] on filedocumented in this encounter Care Teams Sorter Pricer Relationship Specialty Start Date End Date James Oro MD PCP - General Internal Medicine 02/13/19 02/03/23 documented as of this encounter
== END 2025-02-05 16:39 | disposition home or self-care (01) ==
LOC: HO.HMCFM 16:17
PROVIDERS: PCP Family Medicine; Visit Provider Family Medicine
DX: I10 Essential (primary) hypertension (principal); R73.03 Prediabetes; Z12.31 Encounter for screening mammogram for malignant neoplasm of breast; I77.89 Other specified disorders of arteries and arterioles

== ENCOUNTER → 2025-02-05 16:16 | Outpatient (BNVA) | payer BC, SELFPAY | PROVIDERS: PCP Family Medicine; Visit Provider Family Medicine | DX: I10 Essential (primary) hypertension (principal); R73.03 Prediabetes; I77.89 Other specified disorders of arteries and arterioles | CPT/HCPCS: 83036; 96127 ==